=== PATIENT | male | born 1960 | race Two or more races ===

== ENCOUNTER 2018-12-29 20:49 | Inpatient (IN) | payer MEDICARE, MEDICAID ==
--- NOTE | 2018-12-29 21:04 | ED Physician Chart ---
ED Chief Complaint/HPI - Patient Information Date Seen:: 12/29/18 Time Seen:: 20:50 Chief Complaint:: aggressive behavior History of Present Illness:: Patient has been exhibiting increasing aggressiveness towards staff and other residents at his senior living facility. Has been verbally abusive and exhibiting sexually inappropriate behavior touching female staff members in the back. Reportedly has been picking fights with other residents Allergies:: Allergies Allergy/AdvReac Type Severity Reaction Status Date / Time No Known Allergies Allergy Verified 12/29/18 20:52 ED Review of Systems - Review of Systems General/Constitutional: No fever, No chills, No weight loss, No weakness, No diaphoresis, No edema, No loss of appetite Skin: No skin lesions, No rash, No bruising Head: No headache, No light-headedness Eyes: No loss of vision, No pain, No diplopia ENT: No earache, No nasal drainage, No sore throat, No tinnitus Neck: No neck pain, No swelling, No thyromegaly, No stiffness, No mass noted Cardio Vascular: No chest pain, No palpitations, No PND, No orthopnea, No edema Pulmonary: No SOB, No cough, No sputum, No wheezing GI: No nausea, No vomiting, No diarrhea, No pain, No melena, No hematochezia, No constipation, No hematemesis G/U: No dysuria, No frequency, No hematuria Musculoskeletal: No bone or joint pain, No back pain, No muscle pain Endocrine: No polyuria, No polydipsia Psychiatric: No prior psych history, No depression, No anxiety, No suicidal ideation Hematopoietic: No bruising, No lymphadenopathy Allergic/Immuno: No urticaria, No angioedema Neurological: No syncope, No focal symptoms, No weakness, No paresthesia, No headache, No seizure, No dizziness, No confusion, No vertigo ED Past Medical History - Past Medical History Past Medical History: CAD, Asthma/COPD, Thyroid disorder, Dementia, Other ( cerebrovascular disease; anemia; occult thyroidism; paranoid schizophrenia) Family History: Other (not available) Social History: Care Facility Surgical History: other (not available) Psychiatricy History: Schizophrenia, Dementia Medication: Reviewed Family Medical History - Family Member Mother History Unknown: Yes Ethnicity: Non- Hx Family Cancer: No Hx Family Coronary Artery Disease: No Hx Family Congestive Heart Failure: No Hx Family Hypertension: No Hx Family Stroke: No Hx Family Diabetes: No Hx Family Seizures: No Hx Family Dementia: No Hx Family AIDS: No Hx Family HIV: No Hx Family COPD: No Hx Family Hepatitis: No Hx Family Psychiatric Problems: No Hx Family Tuberculosis: No ED Physical Exam - Physical Examination General/Constitutional: Awake, Well-developed, well-nourished, Alert Other Gen/Cons comments:: Patient is confused; he says the years 3020 Head: Atraumatic Other Eyes comments:: implant right eye Skin: Nl inspection, No rash ENMT: External ears, nose nl, Oropharynx nl, Tonsils nl Other ENMT comments:: 4/ Nasal septal deviation to the left Neck: No nuchal rigidity Respiratory: Nl effort/Exclusion, Clear to Auscultation Cardio Vascular: RRR, No murmur, gallop, rubs GI: No tenderness/rebounding/guarding, No organomegaly, No hernia, Normal BS's, Nondistended, No mass/bruits : No CVA tenderness Extremities: Normal digits & nails Neuro/Psych: No focal deficits Misc: No paraspinal tenderness ED Labs/Radiology/EKG Results - Lab Results Results: Laboratory Results WBC 11.1 Th/cmm (4.8-10.8) H 12/29/18 21:19 RBC 4.93 Mil/cmm (4.30-5.70) 12/29/18 21:19 Hgb 15.3 gm/dL (12-16) 12/29/18 21:19 Hct 45.2 % (41.0-60) 12/29/18 21:19 MCV 91.6 fl (80-99) 12/29/18 21:19 MCH 31.0 pg (26.0-30.0) H 12/29/18 21:19 MCHC Differential 33.8 pg (28.0-36.0) 12/29/18 21:19 RDW 13.5 % (11.5-20.0) 12/29/18 21:19 Plt Count 171 Th/cmm (150-400) 12/29/18 21:19 MPV 9.4 fl 12/29/18 21:19 Neutrophils % 49.4 % (40.0-80.0) 12/29/18 21:19 Lymphocytes % 30.9 % (20.0-50.0) 12/29/18 21:19 Monocytes % 7.8 % (2.0-10.0) 12/29/18 21:19 Eosinophils % 11.0 % (0.0-5.0) H 12/29/18 21:19 Basophils % 0.9 % (0.0-2.0) 12/29/18 21:19 Sodium 140 mEq/L (136-145) 12/29/18 21:19 Potassium 4.2 mEq/L (3.5-5.1) 12/29/18 21:19 Chloride 104 mEq/L (98-107) 12/29/18 21:19 Carbon Dioxide 25.5 mEq/L (21.0-31.0) 12/29/18 21:19 Anion Gap 14.7 (7.0-16.0) 12/29/18 21:19 BUN 22 mg/dL (7-25) 12/29/18 21:19 Creatinine 0.7 mg/dL (0.7-1.3) 12/29/18 21:19 Est GFR ( Amer) > 60.0 ml/min (>90) 12/29/18 21:19 Est GFR (Non-Af Amer) > 60.0 ml/min 12/29/18 21:19 BUN/Creatinine Ratio 31.4 12/29/18 21:19 Glucose 89 mg/dL (70-105) 12/29/18 21:19 Calcium 9.5 mg/dL (8.6-10.3) 12/29/18 21:19 Total Bilirubin 0.3 mg/dL (0.3-1.0) 12/29/18 21:19 AST 31 U/L (13-39) 12/29/18 21:19 ALT 45 U/L (7-52) 12/29/18 21:19 Alkaline Phosphatase 55 U/L (34-104) 12/29/18 21:19 Total Protein 7.3 gm/dL (6.0-8.3) 12/29/18 21:19 Albumin 4.2 gm/dL (4.2-5.5) 12/29/18 21:19 Globulin 3.1 gm/dL 12/29/18 21:19 Albumin/Globulin Ratio 1.4 (1.0-1.8) 12/29/18 21:19 Triglycerides 217 mg/dL (<150) H 12/29/18 21:19 Cholesterol 194 mg/dL (<200) 12/29/18 21:19 LDL Cholesterol Direct 138 mg/dL (75-193) 12/29/18 21:19 HDL Cholesterol 44 mg/dL (23-92) 12/29/18 21:19 - Radiology Results Results: chest x-ray negative - EKG Interpretations Rate & Rhythm: normal sinus rhythm with a rate of 54 [place]: normal Comments:: low voltage ED Assessment - Assessment General Assessment: Patient had some coughing in the emergency department. Chest x-ray was normal. ED Septic Shock - . Is Septic Shock (SBP<90, OR Lactate>4 mmol\L) present?: No ED Reassessment (Disposition) - Reassessment Reassessment Condition:: Unchanged - Diagnosis Diagnosis:: Dementia with aggressive behavior; viral bronchitis - Patient Disposition Admitted to:: [facility] Admitting Medical Physician:: Cheo Peña Admitting Psych Physician:: Bria Kennedy
[2018-12-29 21:23] LABS: % BASOPHILS 0.9 % (0.0-2.0); % LYMPHOCYTES 30.9 % (20.0-50.0); % MONOCYTES 7.8 % (2.0-10.0); % NEUTROPHILS 49.4 % (40.0-80.0); BASOPHILE ABSOLUTE 0.1 Th/cumm (0-0.2); EOSINOPHILE ABSOLUTE 1.2 Th/cmm (0.1-0.4); HEMATOCRIT 45.2 % (41.0-60); HEMOGLOBIN 15.3 gm/dL (12-16); LYMPHOCYTE ABSOLUTE 3.4 Th/cmm (1.5-3.0); MEAN CELL VOLUME 91.6 fl (80-99); MEAN CORPUSCULAR HGB CONC 33.8 pg (28.0-36.0); MEAN PLATELET VOLUME 9.4 fl; MONOCYTE ABSOLUTE 0.9 Th/cmm (0.3-1.0); NEUTROPHILE ABSOLUTE 5.5 Th/cmm (1.8-8.0); PLATELET COUNT 171 Th/cmm (150-400); RED BLOOD COUNT 4.93 Mil/cmm (4.30-5.70); RED CELL DISTRIBUTION WIDTH 13.5 % (11.5-20.0); WHITE BLOOD COUNT 11.1 Th/cmm (4.8-10.8)
[2018-12-29 21:43] LABS: ALB/GLOB RATIO 1.4 (1.0-1.8); ALBUMIN 4.2 gm/dL (4.2-5.5); ALKALINE PHOSPHATASE 55 U/L (34-104); ANION GAP 14.7 (7.0-16.0); BILIRUBIN,TOTAL 0.3 mg/dL (0.3-1.0); BUN - UREA NITROGEN 22 mg/dL (7-25); CALCIUM SERUM 9.5 mg/dL (8.6-10.3); CARBON DIOXIDE 25.5 mEq/L (21.0-31.0); CHLORIDE 104 mEq/L (98-107); CHOLESTEROL 194 mg/dL (<200); CREATININE - SERUM 0.7 mg/dL (0.7-1.3); GFR AFRICAN-AMERICAN > 60.0 ml/min (>90); GFR NON AFRICAN-AMERICAN > 60.0 ml/min; GLUCOSE 89 mg/dL (70-105); HDL -HIGH DENSITY LIPOPROTEIN 44 mg/dL (23-92); POTASSIUM SERUM 4.2 mEq/L (3.5-5.1); SGOT 31 U/L (13-39); SGPT/ALT 45 U/L (7-52); SODIUM SERUM 140 mEq/L (136-145); TOTAL PROTEIN,SERUM 7.3 gm/dL (6.0-8.3); TRIGLYCERIDES 217 mg/dL (<150)
[2018-12-30 00:15] VITALS: BP 113/76
[2018-12-30] MEDS ORDERED: Magnesium Hydroxide (MOM) 30 mL UDC PO PRN (01:38)
[2018-12-30] MEDS: Levothyroxine 0.025 Mg Tab PO SCH (06:33)
[2018-12-30 08:09] LABS: CHOLESTEROL 175 mg/dL (<200); HDL -HIGH DENSITY LIPOPROTEIN 39 mg/dL (23-92); TRIGLYCERIDES 141 mg/dL (<150)
--- NOTE | 2018-12-30 08:56 | Diagnostic Imaging Report ---
Portable chest x-ray History: Cough Allowing for portable technique the heart size is normal. No focal pulmonary parenchymal processes. No hilar or mediastinal abnormalities. Impression: No acute abnormalities.
[2018-12-30] MEDS: Aspirin 81mg Chewable Tab PO SCH (09:49)
[2018-12-30] MEDS: DIVALPROEX PO SCH ×2 (09:56→16:49)
--- NOTE | 2018-12-30 14:08 | History & Physical ---
ADMIT DATE: 12/29/2018 CHIEF COMPLAINT: Medical evaluation and clearance. HISTORY OF PRESENT ILLNESS: This is a 58-year-old male with history of psych disorder, dementia, hypothyroidism, admitted from nursing facility secondary to agitated behavior, admitted under the service of Dr. Kennedy. The patient denies chest pain, shortness of breath, coughing and fever. PAST MEDICAL HISTORY: As mentioned in history of present illness. PAST SURGICAL HISTORY: Status post left shoulder surgery. ALLERGIES: No known drug allergies. MEDICATIONS: Depakote, Seroquel, Tylenol, Colace, ____, Cosopt eyedrops, Synthroid and Zyprexa ____ FAMILY HISTORY: Noncontributory. SOCIAL HISTORY: The patient is an avid smoker and drinker. 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 REVIEW OF SYSTEMS: GENERAL: Complains of not feeling well. HEENT: No blurred vision or pain. LUNGS: No diagnosis of COPD or asthma. HEART: The patient denies hypertension or coronary artery disease. ABDOMEN: No nausea, vomiting, or pain. GENITOURINARY: The patient denies increased frequency or dysuria. NEUROLOGIC: No headache, seizure. The patient has unstable gait. ENDOCRINE: The patient with a thyroid problem. PHYSICAL EXAMINATION: VITAL SIGNS: Blood pressure 128/75, respiratory rate 20, pulse 69, temperature 98.6. GENERAL: Elderly male, appears stated age. NECK: Supple. No mass. LUNGS: Equal breath sounds, few rhonchi. HEART: Regular rate and rhythm without systolic ejection murmur. ABDOMEN: Soft, globular. EXTREMITIES: Positive excoriation and edema. NEUROLOGIC: Limited. LABORATORY DATA: WBC 11, hemoglobin 15, platelets 121. Sodium 140, potassium 4.2, BUN 22, creatinine 0.7, triglyceride ____. ASSESSMENT AND PLAN: Leukocytosis of unclear etiology, unclear significance, dementia, psych disorder, hypothyroidism, generalized weakness, osteoarthritis. We will put the patient on non-steroidal anti-inflammatories drugs. Continue Synthroid. We will place the patient on fall precaution. Check the patient's electrolytes and A1c. Continue with current care. We will follow the patient closely. JOB# [id number]
--- NOTE | 2018-12-30 21:39 | Psychiatric Evaluation ---
DATE OF SERVICE: 12/29/2018 IDENTIFYING INFORMATION: The patient is a 58-year-old male. HISTORY OF PRESENT ILLNESS: The patient was admitted because he expressed a desire to , now he has no plan for that, but it may come back. When I talked to him, he was a poor historian. He was unable to tell me his age, he believes he is 39 years of age. He was for 10 years. He believes he is homeless, living on the streets. He denies any auditory or visual hallucination; however, he was unable to tell me the date, where he is, why he is here. PAST PSYCHIATRIC HISTORY: The patient is demented, confused, unable to give information, tell me his age, and why he is here. MEDICAL HISTORY: Deferred to the medical doctor. ALLERGIES: FLOMAX AND IODINE. MEDICATIONS: He is on Depakote, famotidine, heparin,, midodrine. FAMILY AND SOCIAL HISTORY: The patient is 10 years, has no children. He believes he was living in the street, though he came from a nursing facility, 8th grade education. 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 MENTAL STATUS EXAMINATION: The patient is appropriately dressed, not very well groomed. He was alert, unable to tell me his age, where he is, and why he is here. His retirement and short term memory is poor. He reported that he said the wrong thing, he said he wanted to , he does not mean it. He denies any intent to harm himself or anybody. His insight and judgment is impaired. IMPRESSION: Bipolar disorder, nonspecific and dementia. INITIAL TREATMENT PLAN: The patient will be continued with his medication. We will do group therapy, milieu therapy, and individual therapy. I will be adding Lexapro to his medications. ESTIMATED LENGTH OF STAY: 3-7 days. DISCHARGE CRITERIA: Decreasing agitation and depression. After discharge, outpatient treatment. JOB# [id number] GABRIEL
[2018-12-31] MEDS: Levothyroxine 0.025 Mg Tab PO SCH (07:02)
[2018-12-31] MEDS: DIVALPROEX PO SCH ×2 (09:35→16:38)
[2018-12-31] MEDS: Aspirin 81mg Chewable Tab PO SCH (09:36)
[2018-12-31] MEDS: Vitamin D3 2,000 IU SGL PO SCH (09:37)
--- NOTE | 2018-12-31 12:19 | Internal Medicine Prog Note ---
Internal Medicine Subjective - Subjective Patient seen and examined:: with staff, chart reviewed Patient is:: awake, verbal, interactive, in bed Patient Complaints of:: congestion Per staff patient has:: no adverse event, no episodes of fall, poor appetite, tolerating meds Internal Medicine Objective - Results Result Diagrams: 12/29/18 21:19 12/29/18 21:19 Recent Labs: Laboratory Last Values WBC 11.1 Th/cmm (4.8-10.8) H 12/29/18 21:19 RBC 4.93 Mil/cmm (4.30-5.70) 12/29/18 21:19 Hgb 15.3 gm/dL (12-16) 12/29/18 21:19 Hct 45.2 % (41.0-60) 12/29/18 21: MCV 91.6 fl (80-99) 12/29/18 21:19 MCH 31.0 pg (26.0-30.0) H 12/29/18 21: MCHC Differential 33.8 pg (28.0-36.0) 12/29/18 21:19 RDW 13.5 % (11.5-20.0) 12/29/18 21:19 Plt Count 171 Th/cmm (150-400) 12/29/18 21:19 MPV 9.4 fl 12/29/18 21:19 Neutrophils % 49.4 % (40.0-80.0) 12/29/18 21:19 Lymphocytes % 30.9 % (20.0-50.0) 12/29/18 21: Monocytes % 7.8 % (2.0-10.0) 12/29/18 21:19 Eosinophils % 11.0 % (0.0-5.0) H 12/29/18 21:19 Basophils % 0.9 % (0.0-2.0) 12/29/18 21:19 Sodium 140 mEq/L (136-145) 12/29/18 21:19 Potassium 4.2 mEq/L (3.5-5.1) 12/29/18 21:19 Chloride 104 mEq/L (98-107) 12/29/18 21:19 Carbon Dioxide 25.5 mEq/L (21.0-31.0) 12/29/18 21:19 Anion Gap 14.7 (7.0-16.0) 12/29/18 21:19 BUN 22 mg/dL (7-25) 12/29/18 21:19 Creatinine 0.7 mg/dL (0.7-1.3) 12/29/18 21:19 Est GFR ( Amer) > 60.0 ml/min (>90) 12/29/18 21:19 Est GFR (Non-Af Amer) > 60.0 ml/min 12/29/18 21:19 BUN/Creatinine Ratio 31.4 12/29/18 21:19 Glucose 89 mg/dL (70-105) 12/29/18 21:19 Calcium 9.5 mg/dL (8.6-10.3) 12/29/18 21: Total Bilirubin 0.3 mg/dL (0.3-1.0) 12/29/18 21:19 AST 31 U/L (13-39) 12/29/18 21: ALT 45 U/L (7-52) 12/29/18 21: Alkaline Phosphatase 55 U/L (34-104) 12/29/18 21:19 Total Protein 7.3 gm/dL (6.0-8.3) 12/29/18 21:19 Albumin 4.2 gm/dL (4.2-5.5) 12/29/18 21: Globulin 3.1 gm/dL 12/29/18 21: Albumin/Globulin Ratio 1.4 (1.0-1.8) 12/29/18 21:19 Triglycerides 141 mg/dL (<150) 12/30/18 07:29 Cholesterol 175 mg/dL (<200) 12/30/18 07:29 LDL Cholesterol Direct 127 mg/dL (75-193) 12/30/18 07:29 HDL Cholesterol 39 mg/dL (23-92) 12/30/18 07:29 TSH 0.81 uIU/ml (0.34-5.60) 12/29/18 22:15 RPR NONREACTIVE (NONREACTIVE) 12/29/18 07:29 - Physical Exam Vitals and I&O: Vital Signs Temp 97.8 F 12/31/18 05:37 Pulse 48 12/31/18 05:37 Resp 20 12/31/18 05:37 BP 96/59 12/31/18 05:37 Pulse Ox 98 12/31/18 05:37 Intake & Output 12/30/18 12/31/18 12/31/18 18:59 06:59 18:59 Intake Total 900 120 Balance 900 120 Intake: Oral 900 120 Other: # Voids 4 2 # Bowel Movements 1 0 Stool Characteristics Formed Active Medications: Current Medications Acetaminophen (Tylenol) 650 mg PO Q6HR PRN PRN Reason: Pain or Fever >101 Stop: 02/28/19 01:37 Aspirin (Aspirin Chewable) 81 mg PO DAILY JOSE Stop: 02/28/19 08:59 Last Admin: 12/31/18 09:36 Dose: 81 mg Bisacodyl (Dulcolax 10 Mg Supp) 10 mg RC DAILY PRN PRN Reason: Constipation Stop: 02/28/19 01:37 Divalproex Sodium 125 mg/ (Divalproex Sodium 250 mg) 375 mg PO BID JOSE Stop: 02/28/19 08:59 Last Admin: 12/31/18 09:35 Dose: 375 mg Docusate Sodium (Colace) 100 mg PO DAILY JOSE Stop: 02/28/19 08:59 Last Admin: 12/31/18 09:36 Dose: 100 mg Donepezil HCl (Aricept) 10 mg PO HS [facility] Stop: 02/28/19 20:59 Last Admin: 12/30/18 21:02 Dose: 10 mg Dorzolamide/Timolol (Cosopt Ophth Soln) 1 drop EACH EYE BID JOSE Stop: 02/28/19 08:59 Last Admin: 12/31/18 09:50 Dose: 1 drop Levothyroxine Sodium (Synthroid) 0.025 mg PO QDAC JOSE Stop: 02/28/19 07:29 Last Admin: 12/31/18 07:02 Dose: 0.025 mg Lorazepam (Ativan) 0.5 mg PO Q6HR PRN; Protocol PRN Reason: Anxiety Stop: 02/28/19 05:23 Magnesium Hydroxide (Milk Of Magnesia) 30 ml PO Q72H PRN PRN Reason: Constipation Stop: 02/28/19 01:37 Olanzapine (Zyprexa) 7.5 mg PO HS [facility]; Protocol Stop: 02/28/19 20:59 Last Admin: 12/30/18 21:01 Dose: 7.5 mg Thiamine HCl (Vitamin B1) 100 mg PO DAILY [facility] Stop: 02/28/19 08:59 Last Admin: 12/31/18 09:37 Dose: 100 mg Vitamin D (Vitamin D3) 2,000 iu PO DAILY JOSE Stop: 03/01/19 08:59 Last Admin: 12/31/18 09:37 Dose: 2,000 iu Zolpidem Tartrate (Ambien) 5 mg PO HS PRN PRN Reason: Insomnia Stop: 02/28/19 05:25 General: demented HEENT: NC/AT, PERRLA Neck: Supple, No JVD Lungs: CTAB Cardiovascular: RRR, Normal S1, Normal S2 Abdomen: soft, non-tender, globular, positive bowel sound Extremities: excoriation Neurological: no change, disorganized - Procedures Procedures: Procedures Procedure Code Date GROUP PSYCHOTHERAPY 89262 07/02/15 GROUP PSYCHOTHERAPY GZHZZZZ 07/02/15 OTHER GROUP THERAPY 94.44 04/09/15 Internal Medicine Assmt/Plan - Assessment Assessment: leukocytosis dementia hypothroidism generalized weakness oa - Plan Plan: fall precaution nsaids cont on synthroid cpm dw rn
--- NOTE | 2018-12-31 21:14 | Progress Notes ---
DATE: 12/31/2018 Case was discussed with staff of the patient, reviewed records. The patient continues to be confused, unpredictable, impulsive, needing redirection. Continues to be unable to make safe plan for self-care. Continues to have poor insight. Easily agitated, internally preoccupied. No side effects with the medication, no sedation, no nausea, no extrapyramidal symptoms. He is also demented, confused. We will continue outpatient group therapy, milieu therapy, and adjust medications as needed. [facility]# [id number]
[2019-01-01] MEDS: Levothyroxine 0.025 Mg Tab PO SCH (06:35)
[2019-01-01] MEDS: Vitamin D3 2,000 IU SGL PO SCH (09:03)
[2019-01-01] MEDS: Aspirin 81mg Chewable Tab PO SCH (09:03)
[2019-01-01] MEDS: DIVALPROEX PO SCH ×2 (09:03→17:41)
--- NOTE | 2019-01-01 11:44 | Internal Medicine Prog Note ---
Internal Medicine Subjective - Subjective Patient seen and examined:: with staff, chart reviewed Patient is:: awake, verbal, interactive, in bed Patient Complaints of:: congestion Per staff patient has:: no adverse event, no episodes of fall, poor appetite, tolerating meds Internal Medicine Objective - Results Result Diagrams: 12/29/18 21:19 12/29/18 21:19 Recent Labs: Laboratory Last Values WBC 11.1 Th/cmm (4.8-10.8) H 12/29/18 21:19 RBC 4.93 Mil/cmm (4.30-5.70) 12/29/18 21:19 Hgb 15.3 gm/dL (12-16) 12/29/18 21:19 Hct 45.2 % (41.0-60) 12/29/18 21: MCV 91.6 fl (80-99) 12/29/18 21:19 MCH 31.0 pg (26.0-30.0) H 12/29/18 21: MCHC Differential 33.8 pg (28.0-36.0) 12/29/18 21:19 RDW 13.5 % (11.5-20.0) 12/29/18 21:19 Plt Count 171 Th/cmm (150-400) 12/29/18 21:19 MPV 9.4 fl 12/29/18 21:19 Neutrophils % 49.4 % (40.0-80.0) 12/29/18 21:19 Lymphocytes % 30.9 % (20.0-50.0) 12/29/18 21: Monocytes % 7.8 % (2.0-10.0) 12/29/18 21:19 Eosinophils % 11.0 % (0.0-5.0) H 12/29/18 21:19 Basophils % 0.9 % (0.0-2.0) 12/29/18 21:19 Sodium 140 mEq/L (136-145) 12/29/18 21:19 Potassium 4.2 mEq/L (3.5-5.1) 12/29/18 21:19 Chloride 104 mEq/L (98-107) 12/29/18 21:19 Carbon Dioxide 25.5 mEq/L (21.0-31.0) 12/29/18 21:19 Anion Gap 14.7 (7.0-16.0) 12/29/18 21:19 BUN 22 mg/dL (7-25) 12/29/18 21:19 Creatinine 0.7 mg/dL (0.7-1.3) 12/29/18 21:19 Est GFR ( Amer) > 60.0 ml/min (>90) 12/29/18 21: Est GFR (Non-Af Amer) > 60.0 ml/min 12/29/18 21: BUN/Creatinine Ratio 31.4 12/29/18 21:19 Glucose 89 mg/dL (70-105) 12/29/18 21:19 Calcium 9.5 mg/dL (8.6-10.3) 12/29/18 21: Total Bilirubin 0.3 mg/dL (0.3-1.0) 12/29/18 21:19 AST 31 U/L (13-39) 12/29/18 21: ALT 45 U/L (7-52) 12/29/18 21: Alkaline Phosphatase 55 U/L (34-104) 12/29/18 21:19 Total Protein 7.3 gm/dL (6.0-8.3) 12/29/18 21: Albumin 4.2 gm/dL (4.2-5.5) 12/29/18 21: Globulin 3.1 gm/dL 12/29/18 21: Albumin/Globulin Ratio 1.4 (1.0-1.8) 12/29/18 21:19 Triglycerides 141 mg/dL (<150) 12/30/18 07:29 Cholesterol 175 mg/dL (<200) 12/30/18 07:29 LDL Cholesterol Direct 127 mg/dL (75-193) 12/30/18 07:29 HDL Cholesterol 39 mg/dL (23-92) 12/30/18 07:29 TSH 0.81 uIU/ml (0.34-5.60) 12/29/18 22:15 RPR NONREACTIVE (NONREACTIVE) 12/29/18 07:29 - Physical Exam Vitals and I&O: Vital Signs Temp 97.6 F 01/01/19 06:24 Pulse 62 01/01/19 06:24 Resp 18 01/01/19 06:24 BP 96/60 01/01/19 06:24 Pulse Ox 96 01/01/19 06:24 Intake & Output 12/31/18 01/01/19 01/01/19 18:59 06:59 18:59 Intake Total 1400 110 Balance 1400 110 Intake: Oral 1400 110 Other: # Voids 4 2 # Bowel Movements 0 0 Stool Characteristics Formed Active Medications: Current Medications Acetaminophen (Tylenol) 650 mg PO Q6HR PRN PRN Reason: Pain or Fever >101 Stop: 02/28/19 01:37 Aspirin (Aspirin Chewable) 81 mg PO DAILY JOSE Stop: 02/28/19 08:59 Last Admin: 01/01/19 09:03 Dose: 81 mg Bisacodyl (Dulcolax 10 Mg Supp) 10 mg RC DAILY PRN PRN Reason: Constipation Stop: 02/28/19 01:37 Divalproex Sodium 125 mg/ (Divalproex Sodium 250 mg) 375 mg PO BID JOSE Stop: 02/28/19 08:59 Last Admin: 01/01/19 09:03 Dose: 375 mg Docusate Sodium (Colace) 100 mg PO DAILY JOSE Stop: 02/28/19 08:59 Last Admin: 01/01/19 09:02 Dose: 100 mg Donepezil HCl (Aricept) 10 mg PO HS [facility] Stop: 02/28/19 20:59 Last Admin: 12/31/18 20:36 Dose: 10 mg Dorzolamide/Timolol (Cosopt Ophth Soln) 1 drop EACH EYE BID JOSE Stop: 02/28/19 08:59 Last Admin: 01/01/19 09:02 Dose: 1 drop Levothyroxine Sodium (Synthroid) 0.025 mg PO QDAC JOSE Stop: 02/28/19 07:29 Last Admin: 01/01/19 06:35 Dose: 0.025 mg Lorazepam (Ativan) 0.5 mg PO Q6HR PRN; Protocol PRN Reason: Anxiety Stop: 02/28/19 05:23 Magnesium Hydroxide (Milk Of Magnesia) 30 ml PO Q72H PRN PRN Reason: Constipation Stop: 02/28/19 01:37 Olanzapine (Zyprexa) 7.5 mg PO HS [facility]; Protocol Stop: 02/28/19 20:59 Last Admin: 12/31/18 20:36 Dose: 7.5 mg Thiamine HCl (Vitamin B1) 100 mg PO DAILY [facility] Stop: 02/28/19 08:59 Last Admin: 01/01/19 09:02 Dose: 100 mg Vitamin D (Vitamin D3) 2,000 iu PO DAILY JOSE Stop: 03/01/19 08:59 Last Admin: 01/01/19 09:03 Dose: 2,000 iu Zolpidem Tartrate (Ambien) 5 mg PO HS PRN PRN Reason: Insomnia Stop: 02/28/19 05:25 General: demented HEENT: NC/AT, PERRLA Neck: Supple, No JVD Lungs: CTAB Cardiovascular: RRR, Normal S1, Normal S2 Abdomen: soft, non-tender, globular, positive bowel sound Extremities: excoriation Neurological: no change, disorganized - Procedures Procedures: Procedures Procedure Code Date GROUP PSYCHOTHERAPY 56812 07/02/15 GROUP PSYCHOTHERAPY GZHZZZZ 07/02/15 OTHER GROUP THERAPY 94.44 04/09/15 Internal Medicine Assmt/Plan - Assessment Assessment: leukocytosis dementia hypothroidism generalized weakness oa - Plan Plan: fall precaution nsaids cont on synthroid cpm dw rn
--- NOTE | 2019-01-01 21:59 | Progress Notes ---
DATE: 01/01/2019 SUBJECTIVE: Case was discussed with staff of the patient, reviewed records. The patient continues to be confused, unpredictable, impulsive, irritable, can take care of his ADLs, need help. He continues to have episodes of agitation, irritability. He is compliant with the medication with no side effects, no sedation, no nausea, and no extrapyramidal symptoms. Tolerated increase in Zyprexa yesterday to 7.5 mg at bedtime. We will continue to work with the patient in group therapy, milieu therapy, and adjust the medications as needed. JOB# [id number]
[2019-01-02] MEDS: Levothyroxine 0.025 Mg Tab PO SCH (06:50)
[2019-01-02] MEDS: Vitamin D3 2,000 IU SGL PO SCH (08:48)
[2019-01-02] MEDS: DIVALPROEX PO SCH ×2 (08:48→16:11)
[2019-01-02] MEDS: Aspirin 81mg Chewable Tab PO SCH (08:49)
--- NOTE | 2019-01-02 11:16 | Internal Medicine Prog Note ---
Internal Medicine Subjective - Subjective Patient seen and examined:: with staff, chart reviewed Patient is:: awake, verbal, interactive, in bed Patient Complaints of:: congestion Per staff patient has:: no adverse event, no episodes of fall, poor appetite, tolerating meds Internal Medicine Objective - Results Result Diagrams: 12/29/18 21:19 12/29/18 21:19 Recent Labs: Laboratory Last Values WBC 11.1 Th/cmm (4.8-10.8) H 12/29/18 21:19 RBC 4.93 Mil/cmm (4.30-5.70) 12/29/18 21:19 Hgb 15.3 gm/dL (12-16) 12/29/18 21:19 Hct 45.2 % (41.0-60) 12/29/18 21: MCV 91.6 fl (80-99) 12/29/18 21:19 MCH 31.0 pg (26.0-30.0) H 12/29/18 21: MCHC Differential 33.8 pg (28.0-36.0) 12/29/18 21:19 RDW 13.5 % (11.5-20.0) 12/29/18 21:19 Plt Count 171 Th/cmm (150-400) 12/29/18 21:19 MPV 9.4 fl 12/29/18 21:19 Neutrophils % 49.4 % (40.0-80.0) 12/29/18 21:19 Lymphocytes % 30.9 % (20.0-50.0) 12/29/18 21: Monocytes % 7.8 % (2.0-10.0) 12/29/18 21:19 Eosinophils % 11.0 % (0.0-5.0) H 12/29/18 21:19 Basophils % 0.9 % (0.0-2.0) 12/29/18 21:19 Sodium 140 mEq/L (136-145) 12/29/18 21:19 Potassium 4.2 mEq/L (3.5-5.1) 12/29/18 21:19 Chloride 104 mEq/L (98-107) 12/29/18 21:19 Carbon Dioxide 25.5 mEq/L (21.0-31.0) 12/29/18 21:19 Anion Gap 14.7 (7.0-16.0) 12/29/18 21:19 BUN 22 mg/dL (7-25) 12/29/18 21:19 Creatinine 0.7 mg/dL (0.7-1.3) 12/29/18 21:19 Est GFR ( Amer) > 60.0 ml/min (>90) 12/29/18 21: Est GFR (Non-Af Amer) > 60.0 ml/min 12/29/18 21:19 BUN/Creatinine Ratio 31.4 12/29/18 21:19 Glucose 89 mg/dL (70-105) 12/29/18 21:19 Calcium 9.5 mg/dL (8.6-10.3) 12/29/18 21: Total Bilirubin 0.3 mg/dL (0.3-1.0) 12/29/18 21:19 AST 31 U/L (13-39) 12/29/18 21: ALT 45 U/L (7-52) 12/29/18 21: Alkaline Phosphatase 55 U/L (34-104) 12/29/18 21:19 Total Protein 7.3 gm/dL (6.0-8.3) 12/29/18 21:19 Albumin 4.2 gm/dL (4.2-5.5) 12/29/18 21: Globulin 3.1 gm/dL 12/29/18 21: Albumin/Globulin Ratio 1.4 (1.0-1.8) 12/29/18 21:19 Triglycerides 141 mg/dL (<150) 12/30/18 07:29 Cholesterol 175 mg/dL (<200) 12/30/18 07:29 LDL Cholesterol Direct 127 mg/dL (75-193) 12/30/18 07:29 HDL Cholesterol 39 mg/dL (23-92) 12/30/18 07:29 TSH 0.81 uIU/ml (0.34-5.60) 12/29/18 22:15 RPR NONREACTIVE (NONREACTIVE) 12/29/18 07:29 - Physical Exam Vitals and I&O: Vital Signs Temp 97.6 F 01/02/19 06:11 Pulse 59 01/02/19 06:11 Resp 18 01/02/19 06:11 BP 101/69 01/02/19 06:11 Pulse Ox 96 01/02/19 06:11 Intake & Output 01/01/19 01/02/19 01/02/19 18:59 06:59 18:59 Intake Total 800 120 Balance 800 120 Intake: Oral 800 120 Other: # Voids 3 3 # Bowel Movements 0 1 Stool Characteristics Formed Active Medications: Current Medications Acetaminophen (Tylenol) 650 mg PO Q6HR PRN PRN Reason: Pain or Fever >101 Stop: 02/28/19 01:37 Aspirin (Aspirin Chewable) 81 mg PO DAILY JOSE Stop: 02/28/19 08:59 Last Admin: 01/02/19 08:49 Dose: 81 mg Bisacodyl (Dulcolax 10 Mg Supp) 10 mg RC DAILY PRN PRN Reason: Constipation Stop: 02/28/19 01:37 Divalproex Sodium 125 mg/ (Divalproex Sodium 250 mg) 375 mg PO BID JOSE Stop: 02/28/19 08:59 Last Admin: 01/02/19 08:48 Dose: 375 mg Docusate Sodium (Colace) 100 mg PO DAILY JOSE Stop: 02/28/19 08:59 Last Admin: 01/02/19 08:49 Dose: 100 mg Donepezil HCl (Aricept) 10 mg PO HS [facility] Stop: 02/28/19 20:59 Last Admin: 01/01/19 20:27 Dose: 10 mg Dorzolamide/Timolol (Cosopt Ophth Soln) 1 drop EACH EYE BID JOSE Stop: 02/28/19 08:59 Last Admin: 01/02/19 08:48 Dose: 1 drop Levothyroxine Sodium (Synthroid) 0.025 mg PO QDAC JOSE Stop: 02/28/19 07:29 Last Admin: 01/02/19 06:50 Dose: 0.025 mg Lorazepam (Ativan) 0.5 mg PO Q6HR PRN; Protocol PRN Reason: Anxiety Stop: 02/28/19 05:23 Magnesium Hydroxide (Milk Of Magnesia) 30 ml PO Q72H PRN PRN Reason: Constipation Stop: 02/28/19 01:37 Olanzapine (Zyprexa) 7.5 mg PO HS [facility]; Protocol Stop: 02/28/19 20:59 Last Admin: 01/01/19 20:27 Dose: 7.5 mg Thiamine HCl (Vitamin B1) 100 mg PO DAILY JOSE Stop: 02/28/19 08:59 Last Admin: 01/02/19 08:49 Dose: 100 mg Vitamin D (Vitamin D3) 2,000 iu PO DAILY JOSE Stop: 03/01/19 08:59 Last Admin: 01/02/19 08:48 Dose: 2,000 iu Zolpidem Tartrate (Ambien) 5 mg PO HS PRN PRN Reason: Insomnia Stop: 02/28/19 05:25 General: demented HEENT: NC/AT, PERRLA Neck: Supple, No JVD Lungs: CTAB Cardiovascular: RRR, Normal S1, Normal S2 Abdomen: soft, non-tender, globular, positive bowel sound Extremities: excoriation Neurological: no change, disorganized - Procedures Procedures: Procedures Procedure Code Date GROUP PSYCHOTHERAPY 35341 07/02/15 GROUP PSYCHOTHERAPY GZHZZZZ 07/02/15 OTHER GROUP THERAPY 94.44 04/09/15 Internal Medicine Assmt/Plan - Assessment Assessment: leukocytosis dementia hypothroidism generalized weakness oa - Plan Plan: fall precaution nsaids cont on synthroid cpm dw rn Nutritional Asmnt/Malnutr-PDOC - Dietary Evaluation Malnutrition Findings (Please click <Entered> for more info): Nutritional Asmnt/Malnutrition Start: 01/02/19 10: 17 Text: Status: Active Freq: Protocol: Document 01/02/19 10:17 LCKIMBERLYG (Rec: 01/02/19 10:24 [email or web address] [email or web address]) Nutritional Asmnt/Malnutrition Patient General Information Nutritional Screening Moderate Risk Diagnosis psychosis Pertinent Medical Hx/Surgical Hx CAD, asthma/COPD, thyroid disorder, dementia, cerebrovascular disease, anemia, occult thyroidism, paranoid schizophrenia Subjective Information Per EMR, PO itnake 75-100%. Current Diet Order/ Nutrition Support regular Pertinent Medications colace, synthroid, vit B1, vit D3 Pertinent Labs 5/2 TG 217 Nutritional Hx/Data Height 1.96 m Height (Calculated Centimeters) 195.6 Current Weight (lbs) 77.111 kg Weight (Calculated Kilograms) 77.1 Weight (Calculated Grams) 38260.7 [place] Body Weight 208 Body Mass Index (BMI) 20.1 Weight Status Approriate GI Symptoms GI Symptoms None Last BM 5/6 Difficult in: None Skin Integrity/Comment: dryness Current %PO Good (75-100%) Estimated Nutritional Goals BEE in Kcals: Using Current wt Calories/Kcals/Kg 25-30 Kcals Calculated 3791-8355 Protein: Using Current wt Protein g/k.8 Protein Calculated 62 Fluid: ml 1875-2340ml (1ml/kcal) Nutritional Problem No current Nutrition Prob Problem N/A Malnutrition Alert Is there a minimum of two criteria No selected? Query Text:Check all the applicable criteria. A minimum of two criteria are recommended for diagnosis of either severe or non-severe malnutrition. Malnutrition Related to Morbid Obesity Malnutrition related to morbid obesity No Intervention/Recommendation Comments 1. Continue with regular diet as ordered. 2. Monitor PO intake, wt, labs and skin integrity 3. F/U as Expected Outcomes/Goals Expected Outcomes/Goals 1. PO intake to meet at least 75% of nutritional needs. 2. Wt stability, skin to remain intact, labs to approach WNL.
--- NOTE | 2019-01-03 03:03 | Progress Notes ---
DATE: 01/02/2019 FOLLOWUP PROGRESS NOTE Case was discussed with staff of the patient, reviewed records. The patient continues to be internally preoccupied, stays to himself, demented, confused, unable to make safe plan for self-care, unpredictable, impulsive, needing redirection. He is sleeping well, eating well. No side effects of the medication, no sedation, no nausea and no extrapyramidal symptoms. We will continue to work with the patient in group therapy, milieu therapy and adjust the medication as needed. JOB# [id number]
[2019-01-03] MEDS: Levothyroxine 0.025 Mg Tab PO SCH (06:48)
[2019-01-03] MEDS: Vitamin D3 2,000 IU SGL PO SCH (08:13)
[2019-01-03] MEDS: Aspirin 81mg Chewable Tab PO SCH (08:13)
[2019-01-03] MEDS: DIVALPROEX PO SCH ×2 (08:14→16:40)
--- NOTE | 2019-01-03 11:54 | Internal Medicine Prog Note ---
Internal Medicine Subjective - Subjective Patient seen and examined:: with staff, chart reviewed Patient is:: awake, verbal, interactive, in bed Patient Complaints of:: congestion Per staff patient has:: no adverse event, no episodes of fall, poor appetite, tolerating meds Internal Medicine Objective - Results Result Diagrams: 12/29/18 21:19 12/29/18 21:19 Recent Labs: Laboratory Last Values WBC 11.1 Th/cmm (4.8-10.8) H 12/29/18 21:19 RBC 4.93 Mil/cmm (4.30-5.70) 12/29/18 21:19 Hgb 15.3 gm/dL (12-16) 12/29/18 21:19 Hct 45.2 % (41.0-60) 12/29/18 21: MCV 91.6 fl (80-99) 12/29/18 21:19 MCH 31.0 pg (26.0-30.0) H 12/29/18 21: MCHC Differential 33.8 pg (28.0-36.0) 12/29/18 21:19 RDW 13.5 % (11.5-20.0) 12/29/18 21:19 Plt Count 171 Th/cmm (150-400) 12/29/18 21:19 MPV 9.4 fl 12/29/18 21:19 Neutrophils % 49.4 % (40.0-80.0) 12/29/18 21:19 Lymphocytes % 30.9 % (20.0-50.0) 12/29/18 21: Monocytes % 7.8 % (2.0-10.0) 12/29/18 21:19 Eosinophils % 11.0 % (0.0-5.0) H 12/29/18 21:19 Basophils % 0.9 % (0.0-2.0) 12/29/18 21:19 Sodium 140 mEq/L (136-145) 12/29/18 21:19 Potassium 4.2 mEq/L (3.5-5.1) 12/29/18 21:19 Chloride 104 mEq/L (98-107) 12/29/18 21:19 Carbon Dioxide 25.5 mEq/L (21.0-31.0) 12/29/18 21:19 Anion Gap 14.7 (7.0-16.0) 12/29/18 21:19 BUN 22 mg/dL (7-25) 12/29/18 21:19 Creatinine 0.7 mg/dL (0.7-1.3) 12/29/18 21:19 Est GFR ( Amer) > 60.0 ml/min (>90) 12/29/18 21: Est GFR (Non-Af Amer) > 60.0 ml/min 12/29/18 21: BUN/Creatinine Ratio 31.4 12/29/18 21:19 Glucose 89 mg/dL (70-105) 12/29/18 21:19 Calcium 9.5 mg/dL (8.6-10.3) 12/29/18 21: Total Bilirubin 0.3 mg/dL (0.3-1.0) 12/29/18 21:19 AST 31 U/L (13-39) 12/29/18 21: ALT 45 U/L (7-52) 12/29/18 21: Alkaline Phosphatase 55 U/L (34-104) 12/29/18 21:19 Total Protein 7.3 gm/dL (6.0-8.3) 12/29/18 21:19 Albumin 4.2 gm/dL (4.2-5.5) 12/29/18 21: Globulin 3.1 gm/dL 12/29/18 21: Albumin/Globulin Ratio 1.4 (1.0-1.8) 12/29/18 21:19 Triglycerides 141 mg/dL (<150) 12/30/18 07:29 Cholesterol 175 mg/dL (<200) 12/30/18 07:29 LDL Cholesterol Direct 127 mg/dL (75-193) 12/30/18 07:29 HDL Cholesterol 39 mg/dL (23-92) 12/30/18 07:29 TSH 0.81 uIU/ml (0.34-5.60) 12/29/18 22:15 RPR NONREACTIVE (NONREACTIVE) 12/29/18 07:29 - Physical Exam Vitals and I&O: Vital Signs Temp 97.8 F 01/03/19 06:12 Pulse 51 01/03/19 06:12 Resp 20 01/03/19 06:12 BP 105/68 01/03/19 06:12 Pulse Ox 95 01/03/19 06:12 Intake & Output 01/02/19 01/03/19 01/03/19 18:59 06:59 18:59 Intake Total 900 240 Balance 900 240 Weight (lbs) 77.111 kg Intake: Oral 900 240 Other: # Voids 4 3 # Bowel Movements 1 0 Weight Source Bedscale Active Medications: Current Medications Acetaminophen (Tylenol) 650 mg PO Q6HR PRN PRN Reason: Pain or Fever >101 Stop: 02/28/19 01:37 Aspirin (Aspirin Chewable) 81 mg PO DAILY JOSE Stop: 02/28/19 08:59 Last Admin: 01/03/19 08:13 Dose: 81 mg Bisacodyl (Dulcolax 10 Mg Supp) 10 mg RC DAILY PRN PRN Reason: Constipation Stop: 02/28/19 01:37 Divalproex Sodium 125 mg/ (Divalproex Sodium 250 mg) 375 mg PO BID JOSE Stop: 02/28/19 08:59 Last Admin: 01/03/19 08:14 Dose: 375 mg Docusate Sodium (Colace) 100 mg PO DAILY JOSE Stop: 02/28/19 08:59 Last Admin: 01/03/19 08:14 Dose: 100 mg Donepezil HCl (Aricept) 10 mg PO HS [facility] Stop: 02/28/19 20:59 Last Admin: 01/02/19 20:55 Dose: 10 mg Dorzolamide/Timolol (Cosopt Ophth Soln) 1 drop EACH EYE BID JOSE Stop: 02/28/19 08:59 Last Admin: 01/03/19 08:14 Dose: 1 drop Levothyroxine Sodium (Synthroid) 0.025 mg PO QDAC JOSE Stop: 02/28/19 07:29 Last Admin: 01/03/19 06:48 Dose: 0.025 mg Lorazepam (Ativan) 0.5 mg PO Q6HR PRN; Protocol PRN Reason: Anxiety Stop: 02/28/19 05:23 Magnesium Hydroxide (Milk Of Magnesia) 30 ml PO Q72H PRN PRN Reason: Constipation Stop: 02/28/19 01:37 Olanzapine (Zyprexa) 7.5 mg PO HS [facility]; Protocol Stop: 02/28/19 20:59 Last Admin: 01/02/19 20:55 Dose: 7.5 mg Thiamine HCl (Vitamin B1) 100 mg PO DAILY JOSE Stop: 02/28/19 08:59 Last Admin: 01/03/19 08:13 Dose: 100 mg Vitamin D (Vitamin D3) 2,000 iu PO DAILY JOSE Stop: 03/01/19 08:59 Last Admin: 01/03/19 08:13 Dose: 2,000 iu Zolpidem Tartrate (Ambien) 5 mg PO HS PRN PRN Reason: Insomnia Stop: 02/28/19 05:25 General: demented HEENT: NC/AT, PERRLA Neck: Supple, No JVD Lungs: CTAB Cardiovascular: RRR, Normal S1, Normal S2 Abdomen: soft, non-tender, globular, positive bowel sound Extremities: excoriation Neurological: no change, disorganized - Procedures Procedures: Procedures Procedure Code Date GROUP PSYCHOTHERAPY 40401 07/02/15 GROUP PSYCHOTHERAPY GZHZZZZ 07/02/15 OTHER GROUP THERAPY 94.44 04/09/15 Internal Medicine Assmt/Plan - Assessment Assessment: leukocytosis dementia hypothroidism generalized weakness oa - Plan Plan: fall precaution nsaids cont on synthroid cpm dw rn Nutritional Asmnt/Malnutr-PDOC - Dietary Evaluation Malnutrition Findings (Please click <Entered> for more info): Nutritional Asmnt/Malnutrition Start: 01/02/19 10: 17 Text: Status: Complete Freq: Protocol: Document 01/02/19 10:17 LCHENG (Rec: 01/02/19 10:24 LCHENG [email or web address]) Nutritional Asmnt/Malnutrition Patient General Information Nutritional Screening Moderate Risk Diagnosis psychosis Pertinent Medical Hx/Surgical Hx CAD, asthma/COPD, thyroid disorder, dementia, cerebrovascular disease, anemia, occult thyroidism, paranoid schizophrenia Subjective Information Pt seen eating lunch in bed at time of visit, stated food is ok, likes coffee with all meals. Per EMR, PO intake 75- 100%. Current Diet Order/ Nutrition Support regular Pertinent Medications colace, synthroid, vit B1, vit D3 Pertinent Labs 12/29 TG 217 Nutritional Hx/Data Height 1.96 m Height (Calculated Centimeters) 195.6 Current Weight (lbs) 77.111 kg Weight (Calculated Kilograms) 77.1 Weight (Calculated Grams) 24356.7 [place] Body Weight 208 Body Mass Index (BMI) 20.1 Weight Status Approriate GI Symptoms GI Symptoms None Last BM 5/6 Difficult in: None Skin Integrity/Comment: dryness Current %PO Good (75-100%) Estimated Nutritional Goals BEE in Kcals: Using Current wt Calories/Kcals/Kg 25-30 Kcals Calculated 9205-6489 Protein: Using Current wt Protein g/k.8 Protein Calculated 62 Fluid: ml 1875-2340ml (1ml/kcal) Nutritional Problem No current Nutrition Prob Problem N/A Malnutrition Alert Is there a minimum of two criteria No selected? Query Text:Check all the applicable criteria. A minimum of two criteria are recommended for diagnosis of either severe or non-severe malnutrition. Malnutrition Related to Morbid Obesity Malnutrition related to morbid obesity No Intervention/Recommendation Comments 1. Continue with regular diet as ordered. 2. Monitor PO intake, wt, labs and skin integrity 3. F/U as low risk in 7 days Expected Outcomes/Goals Expected Outcomes/Goals 1. PO intake to meet at least 75% of nutritional needs. 2. Wt stability, skin to remain intact, labs to approach WNL.
--- NOTE | 2019-01-03 22:15 | Progress Notes ---
DATE: 01/03/2019 FOLLOWUP PROGRESS NOTE PROGRESS ON THE UNIT: Case discussed with staff of the patient, reviewed records. The patient continues to be confused, unpredictable, impulsive, needing redirection, continues to have poor insight, unable to make a safe plan for self-care, isolating himself, internally preoccupied. He is sleeping well and eating well. He is able to feed himself. No side effects to the medication, no sedation, no nausea, no extrapyramidal symptoms. We will continue to work with the patient in group therapy and milieu therapy, adjust the medication as needed. JOB# [id number]
[2019-01-04] MEDS: Levothyroxine 0.025 Mg Tab PO SCH (06:50)
[2019-01-04] MEDS: DIVALPROEX PO SCH ×2 (09:19→16:59)
[2019-01-04] MEDS: Aspirin 81mg Chewable Tab PO SCH (09:20)
[2019-01-04] MEDS: Vitamin D3 2,000 IU SGL PO SCH (09:20)
--- NOTE | 2019-01-04 11:48 | Internal Medicine Prog Note ---
Internal Medicine Subjective - Subjective Patient seen and examined:: with staff, chart reviewed Patient is:: awake, verbal, interactive, in bed Patient Complaints of:: congestion Per staff patient has:: no adverse event, no episodes of fall, poor appetite, tolerating meds Internal Medicine Objective - Results Result Diagrams: 12/29/18 21:19 12/29/18 21:19 Recent Labs: Laboratory Last Values WBC 11.1 Th/cmm (4.8-10.8) H 12/29/18 21:19 RBC 4.93 Mil/cmm (4.30-5.70) 12/29/18 21:19 Hgb 15.3 gm/dL (12-16) 12/29/18 21:19 Hct 45.2 % (41.0-60) 12/29/18 21: MCV 91.6 fl (80-99) 12/29/18 21:19 MCH 31.0 pg (26.0-30.0) H 12/29/18 21: MCHC Differential 33.8 pg (28.0-36.0) 12/29/18 21:19 RDW 13.5 % (11.5-20.0) 12/29/18 21:19 Plt Count 171 Th/cmm (150-400) 12/29/18 21:19 MPV 9.4 fl 12/29/18 21:19 Neutrophils % 49.4 % (40.0-80.0) 12/29/18 21:19 Lymphocytes % 30.9 % (20.0-50.0) 12/29/18 21: Monocytes % 7.8 % (2.0-10.0) 12/29/18 21:19 Eosinophils % 11.0 % (0.0-5.0) H 12/29/18 21:19 Basophils % 0.9 % (0.0-2.0) 12/29/18 21:19 Sodium 140 mEq/L (136-145) 12/29/18 21:19 Potassium 4.2 mEq/L (3.5-5.1) 12/29/18 21:19 Chloride 104 mEq/L (98-107) 12/29/18 21:19 Carbon Dioxide 25.5 mEq/L (21.0-31.0) 12/29/18 21:19 Anion Gap 14.7 (7.0-16.0) 12/29/18 21:19 BUN 22 mg/dL (7-25) 12/29/18 21:19 Creatinine 0.7 mg/dL (0.7-1.3) 12/29/18 21:19 Est GFR ( Amer) > 60.0 ml/min (>90) 12/29/18 21: Est GFR (Non-Af Amer) > 60.0 ml/min 12/29/18 21: BUN/Creatinine Ratio 31.4 12/29/18 21:19 Glucose 89 mg/dL (70-105) 12/29/18 21:19 Calcium 9.5 mg/dL (8.6-10.3) 12/29/18 21: Total Bilirubin 0.3 mg/dL (0.3-1.0) 12/29/18 21:19 AST 31 U/L (13-39) 12/29/18 21: ALT 45 U/L (7-52) 12/29/18 21: Alkaline Phosphatase 55 U/L (34-104) 12/29/18 21:19 Total Protein 7.3 gm/dL (6.0-8.3) 12/29/18 21: Albumin 4.2 gm/dL (4.2-5.5) 12/29/18 21: Globulin 3.1 gm/dL 12/29/18 21: Albumin/Globulin Ratio 1.4 (1.0-1.8) 12/29/18 21:19 Triglycerides 141 mg/dL (<150) 12/30/18 07:29 Cholesterol 175 mg/dL (<200) 12/30/18 07:29 LDL Cholesterol Direct 127 mg/dL (75-193) 12/30/18 07:29 HDL Cholesterol 39 mg/dL (23-92) 12/30/18 07:29 TSH 0.81 uIU/ml (0.34-5.60) 12/29/18 22:15 RPR NONREACTIVE (NONREACTIVE) 12/29/18 07:29 - Physical Exam Vitals and I&O: Vital Signs Temp 97.8 F 01/04/19 06:05 Pulse 50 01/04/19 06:05 Resp 19 01/04/19 06:05 BP 99/64 01/04/19 06:05 Pulse Ox 96 01/04/19 06:05 Intake & Output 01/03/19 01/04/19 01/04/19 18:59 06:59 18:59 Intake Total 850 300 Output Total 1 Balance 850 299 Intake: Oral 850 300 Output: Urine/Stool Mix 1 Other: # Voids 4 1 # Bowel Movements 1 0 Active Medications: Current Medications Acetaminophen (Tylenol) 650 mg PO Q6HR PRN PRN Reason: Pain or Fever >101 Stop: 02/28/19 01:37 Aspirin (Aspirin Chewable) 81 mg PO DAILY JOSE Stop: 02/28/19 08:59 Last Admin: 01/04/19 09:20 Dose: 81 mg Bisacodyl (Dulcolax 10 Mg Supp) 10 mg RC DAILY PRN PRN Reason: Constipation Stop: 02/28/19 01:37 Divalproex Sodium 125 mg/ (Divalproex Sodium 250 mg) 375 mg PO BID JOSE Stop: 02/28/19 08:59 Last Admin: 01/04/19 09:19 Dose: 375 mg Docusate Sodium (Colace) 100 mg PO DAILY JOSE Stop: 02/28/19 08:59 Last Admin: 01/04/19 09:20 Dose: 100 mg Donepezil HCl (Aricept) 10 mg PO HS [facility] Stop: 02/28/19 20:59 Last Admin: 01/03/19 20:38 Dose: 10 mg Dorzolamide/Timolol (Cosopt Ophth Soln) 1 drop EACH EYE BID JOSE Stop: 02/28/19 08:59 Last Admin: 01/04/19 09:19 Dose: 1 drop Levothyroxine Sodium (Synthroid) 0.025 mg PO QDAC JOSE Stop: 02/28/19 07:29 Last Admin: 01/04/19 06:50 Dose: 0.025 mg Lorazepam (Ativan) 0.5 mg PO Q6HR PRN; Protocol PRN Reason: Anxiety Stop: 02/28/19 05:23 Magnesium Hydroxide (Milk Of Magnesia) 30 ml PO Q72H PRN PRN Reason: Constipation Stop: 02/28/19 01:37 Olanzapine (Zyprexa) 7.5 mg PO HS [facility]; Protocol Stop: 02/28/19 20:59 Last Admin: 01/03/19 20:37 Dose: 7.5 mg Thiamine HCl (Vitamin B1) 100 mg PO DAILY JOSE Stop: 02/28/19 08:59 Last Admin: 01/04/19 09:19 Dose: 100 mg Vitamin D (Vitamin D3) 2,000 iu PO DAILY JOSE Stop: 03/01/19 08:59 Last Admin: 01/04/19 09:20 Dose: 2,000 iu Zolpidem Tartrate (Ambien) 5 mg PO HS PRN PRN Reason: Insomnia Stop: 02/28/19 05:25 General: demented HEENT: NC/AT, PERRLA Neck: Supple, No JVD Lungs: CTAB Cardiovascular: RRR, Normal S1, Normal S2 Abdomen: soft, non-tender, globular, positive bowel sound Extremities: excoriation Neurological: no change, disorganized - Procedures Procedures: Procedures Procedure Code Date GROUP PSYCHOTHERAPY 27824 07/02/15 GROUP PSYCHOTHERAPY GZHZZZZ 07/02/15 OTHER GROUP THERAPY 94.44 04/09/15 Internal Medicine Assmt/Plan - Assessment Assessment: leukocytosis dementia hypothroidism generalized weakness oa - Plan Plan: fall precaution nsaids cont on synthroid cpm dw rn Nutritional Asmnt/Malnutr-PDOC - Dietary Evaluation Malnutrition Findings (Please click <Entered> for more info): Nutritional Asmnt/Malnutrition Start: 01/02/19 10: 17 Text: Status: Complete Freq: Protocol: Document 01/02/19 10:17 LCHENG (Rec: 01/02/19 10:24 [email or web address] [email or web address]) Nutritional Asmnt/Malnutrition Patient General Information Nutritional Screening Moderate Risk Diagnosis psychosis Pertinent Medical Hx/Surgical Hx CAD, asthma/COPD, thyroid disorder, dementia, cerebrovascular disease, anemia, occult thyroidism, paranoid schizophrenia Subjective Information Pt seen eating lunch in bed at time of visit, stated food is ok, likes coffee with all meals. Per EMR, PO intake 75- 100%. Current Diet Order/ Nutrition Support regular Pertinent Medications colace, synthroid, vit B1, vit D3 Pertinent Labs 12/29 TG 217 Nutritional Hx/Data Height 1.96 m Height (Calculated Centimeters) 195.6 Current Weight (lbs) 77.111 kg Weight (Calculated Kilograms) 77.1 Weight (Calculated Grams) 45118.7 [place] Body Weight 208 Body Mass Index (BMI) 20.1 Weight Status Approriate GI Symptoms GI Symptoms None Last BM 5/6 Difficult in: None Skin Integrity/Comment: dryness Current %PO Good (75-100%) Estimated Nutritional Goals BEE in Kcals: Using Current wt Calories/Kcals/Kg 25-30 Kcals Calculated 7391-2914 Protein: Using Current wt Protein g/k.8 Protein Calculated 62 Fluid: ml 1875-2340ml (1ml/kcal) Nutritional Problem No current Nutrition Prob Problem N/A Malnutrition Alert Is there a minimum of two criteria No selected? Query Text:Check all the applicable criteria. A minimum of two criteria are recommended for diagnosis of either severe or non-severe malnutrition. Malnutrition Related to Morbid Obesity Malnutrition related to morbid obesity No Intervention/Recommendation Comments 1. Continue with regular diet as ordered. 2. Monitor PO intake, wt, labs and skin integrity 3. F/U as low risk in 7 days Expected Outcomes/Goals Expected Outcomes/Goals 1. PO intake to meet at least 75% of nutritional needs. 2. Wt stability, skin to remain intact, labs to approach WNL.
--- NOTE | 2019-01-04 21:35 | Progress Notes ---
DATE: 01/04/2019 Case was discussed with staff of the patient, reviewed records. The patient continue to be confused, internally preoccupied, stays to himself, unpredictable, impulsive, needing redirection. No side effects with the medication, no sedation, no nausea, no extrapyramidal symptoms. I will be adding Namenda to his medication to help improve his cognition. We will continue to work with the patient in group therapy, milieu therapy, and adjust the medication as needed. JOB# [id number]
[2019-01-05] MEDS: Levothyroxine 0.025 Mg Tab PO SCH (06:47)
[2019-01-05] MEDS: Vitamin D3 2,000 IU SGL PO SCH (08:52)
[2019-01-05] MEDS: Aspirin 81mg Chewable Tab PO SCH (08:53)
[2019-01-05] MEDS: DIVALPROEX PO SCH ×2 (08:54→17:27)
--- NOTE | 2019-01-05 11:42 | Internal Medicine Prog Note ---
Internal Medicine Subjective - Subjective Patient seen and examined:: with staff, chart reviewed Patient is:: awake, verbal, interactive, in bed Patient Complaints of:: congestion Per staff patient has:: no adverse event, no episodes of fall, poor appetite, tolerating meds Internal Medicine Objective - Results Result Diagrams: 12/29/18 21:19 12/29/18 21:19 Recent Labs: Laboratory Last Values WBC 11.1 Th/cmm (4.8-10.8) H 12/29/18 21:19 RBC 4.93 Mil/cmm (4.30-5.70) 12/29/18 21:19 Hgb 15.3 gm/dL (12-16) 12/29/18 21:19 Hct 45.2 % (41.0-60) 12/29/18 21: MCV 91.6 fl (80-99) 12/29/18 21:19 MCH 31.0 pg (26.0-30.0) H 12/29/18 21: MCHC Differential 33.8 pg (28.0-36.0) 12/29/18 21:19 RDW 13.5 % (11.5-20.0) 12/29/18 21:19 Plt Count 171 Th/cmm (150-400) 12/29/18 21:19 MPV 9.4 fl 12/29/18 21:19 Neutrophils % 49.4 % (40.0-80.0) 12/29/18 21:19 Lymphocytes % 30.9 % (20.0-50.0) 12/29/18 21: Monocytes % 7.8 % (2.0-10.0) 12/29/18 21:19 Eosinophils % 11.0 % (0.0-5.0) H 12/29/18 21:19 Basophils % 0.9 % (0.0-2.0) 12/29/18 21:19 Sodium 140 mEq/L (136-145) 12/29/18 21:19 Potassium 4.2 mEq/L (3.5-5.1) 12/29/18 21:19 Chloride 104 mEq/L (98-107) 12/29/18 21:19 Carbon Dioxide 25.5 mEq/L (21.0-31.0) 12/29/18 21:19 Anion Gap 14.7 (7.0-16.0) 12/29/18 21:19 BUN 22 mg/dL (7-25) 12/29/18 21:19 Creatinine 0.7 mg/dL (0.7-1.3) 12/29/18 21:19 Est GFR ( Amer) > 60.0 ml/min (>90) 12/29/18 21: Est GFR (Non-Af Amer) > 60.0 ml/min 12/29/18 21:19 BUN/Creatinine Ratio 31.4 12/29/18 21:19 Glucose 89 mg/dL (70-105) 12/29/18 21:19 Calcium 9.5 mg/dL (8.6-10.3) 12/29/18 21: Total Bilirubin 0.3 mg/dL (0.3-1.0) 12/29/18 21:19 AST 31 U/L (13-39) 12/29/18 21: ALT 45 U/L (7-52) 12/29/18 21: Alkaline Phosphatase 55 U/L (34-104) 12/29/18 21:19 Total Protein 7.3 gm/dL (6.0-8.3) 12/29/18 21:19 Albumin 4.2 gm/dL (4.2-5.5) 12/29/18 21: Globulin 3.1 gm/dL 12/29/18 21: Albumin/Globulin Ratio 1.4 (1.0-1.8) 12/29/18 21:19 Triglycerides 141 mg/dL (<150) 12/30/18 07:29 Cholesterol 175 mg/dL (<200) 12/30/18 07:29 LDL Cholesterol Direct 127 mg/dL (75-193) 12/30/18 07:29 HDL Cholesterol 39 mg/dL (23-92) 12/30/18 07:29 TSH 0.81 uIU/ml (0.34-5.60) 12/29/18 22:15 RPR NONREACTIVE (NONREACTIVE) 12/29/18 07:29 - Physical Exam Vitals and I&O: Vital Signs Temp 97.2 F 01/05/19 06:49 Pulse 81 01/05/19 06:49 Resp 19 01/05/19 06:49 BP 128/68 01/05/19 06:49 Pulse Ox 96 01/05/19 06:49 Intake & Output 01/04/19 01/05/19 01/05/19 18:59 06:59 18:59 Intake Total 180 Balance 180 Intake: Oral 180 Other: # Voids 3 2 # Bowel Movements 1 0 Active Medications: Current Medications Acetaminophen (Tylenol) 650 mg PO Q6HR PRN PRN Reason: Pain or Fever >101 Stop: 02/28/19 01:37 Last Admin: 01/05/19 09:30 Dose: 650 mg Aspirin (Aspirin Chewable) 81 mg PO DAILY JOSE Stop: 02/28/19 08:59 Last Admin: 01/05/19 08:53 Dose: 81 mg Bisacodyl (Dulcolax 10 Mg Supp) 10 mg RC DAILY PRN PRN Reason: Constipation Stop: 02/28/19 01:37 Divalproex Sodium 125 mg/ (Divalproex Sodium 250 mg) 375 mg PO BID JOSE Stop: 02/28/19 08:59 Last Admin: 01/05/19 08:54 Dose: 375 mg Docusate Sodium (Colace) 100 mg PO DAILY JOSE Stop: 02/28/19 08:59 Last Admin: 01/05/19 08:53 Dose: 100 mg Donepezil HCl (Aricept) 10 mg PO HS [facility] Stop: 02/28/19 20:59 Last Admin: 01/04/19 20:42 Dose: 10 mg Dorzolamide/Timolol (Cosopt Ophth Soln) 1 drop EACH EYE BID JOSE Stop: 02/28/19 08:59 Last Admin: 01/05/19 08:52 Dose: 1 drop Levothyroxine Sodium (Synthroid) 0.025 mg PO QDAC JOSE Stop: 02/28/19 07:29 Last Admin: 01/05/19 06:47 Dose: 0.025 mg Lorazepam (Ativan) 0.5 mg PO Q6HR PRN; Protocol PRN Reason: Anxiety Stop: 02/28/19 05:23 Magnesium Hydroxide (Milk Of Magnesia) 30 ml PO Q72H PRN PRN Reason: Constipation Stop: 02/28/19 01:37 Memantine (Namenda) 5 mg PO DAILY JOSE Stop: 03/06/19 08:59 Last Admin: 01/05/19 08:52 Dose: 5 mg Olanzapine (Zyprexa) 7.5 mg PO HS JOSE; Protocol Stop: 02/28/19 20:59 Last Admin: 01/04/19 20:43 Dose: 7.5 mg Thiamine HCl (Vitamin B1) 100 mg PO DAILY JOSE Stop: 02/28/19 08:59 Last Admin: 01/05/19 08:53 Dose: 100 mg Vitamin D (Vitamin D3) 2,000 iu PO DAILY JOSE Stop: 03/01/19 08:59 Last Admin: 01/05/19 08:52 Dose: 2,000 iu Zolpidem Tartrate (Ambien) 5 mg PO HS PRN PRN Reason: Insomnia Stop: 02/28/19 05:25 General: demented HEENT: NC/AT, PERRLA Neck: Supple, No JVD Lungs: CTAB Cardiovascular: RRR, Normal S1, Normal S2 Abdomen: soft, non-tender, globular, positive bowel sound Extremities: excoriation Neurological: no change, disorganized - Procedures Procedures: Procedures Procedure Code Date GROUP PSYCHOTHERAPY 26341 07/02/15 GROUP PSYCHOTHERAPY GZHZZZZ 07/02/15 OTHER GROUP THERAPY 94.44 04/09/15 Internal Medicine Assmt/Plan - Assessment Assessment: leukocytosis dementia hypothroidism generalized weakness oa - Plan Plan: fall precaution nsaids cont on synthroid cpm dw rn Nutritional Asmnt/Malnutr-PDOC - Dietary Evaluation Malnutrition Findings (Please click <Entered> for more info): Nutritional Asmnt/Malnutrition Start: 01/02/19 10: 17 Text: Status: Complete Freq: Protocol: Document 01/02/19 10:17 IRINEO (Rec: 01/02/19 10:24 IRINEO [email or web address]) Nutritional Asmnt/Malnutrition Patient General Information Nutritional Screening Moderate Risk Diagnosis psychosis Pertinent Medical Hx/Surgical Hx CAD, asthma/COPD, thyroid disorder, dementia, cerebrovascular disease, anemia, occult thyroidism, paranoid schizophrenia Subjective Information Pt seen eating lunch in bed at time of visit, stated food is ok, likes coffee with all meals. Per EMR, PO intake 75- 100%. Current Diet Order/ Nutrition Support regular Pertinent Medications colace, synthroid, vit B1, vit D3 Pertinent Labs 12/29 TG 217 Nutritional Hx/Data Height 1.96 m Height (Calculated Centimeters) 195.6 Current Weight (lbs) 77.111 kg Weight (Calculated Kilograms) 77.1 Weight (Calculated Grams) 91244.7 [place] Body Weight 208 Body Mass Index (BMI) 20.1 Weight Status Approriate GI Symptoms GI Symptoms None Last BM 5/6 Difficult in: None Skin Integrity/Comment: dryness Current %PO Good (75-100%) Estimated Nutritional Goals BEE in Kcals: Using Current wt Calories/Kcals/Kg 25-30 Kcals Calculated 9105-0114 Protein: Using Current wt Protein g/k.8 Protein Calculated 62 Fluid: ml 1875-2340ml (1ml/kcal) Nutritional Problem No current Nutrition Prob Problem N/A Malnutrition Alert Is there a minimum of two criteria No selected? Query Text:Check all the applicable criteria. A minimum of two criteria are recommended for diagnosis of either severe or non-severe malnutrition. Malnutrition Related to Morbid Obesity Malnutrition related to morbid obesity No Intervention/Recommendation Comments 1. Continue with regular diet as ordered. 2. Monitor PO intake, wt, labs and skin integrity 3. F/U as low risk in 7 days Expected Outcomes/Goals Expected Outcomes/Goals 1. PO intake to meet at least 75% of nutritional needs. 2. Wt stability, skin to remain intact, labs to approach WNL.
--- NOTE | 2019-01-05 22:35 | Progress Notes ---
DATE: 01/05/2019 Case was discussed with staff of the patient, reviewed records. The patient continues to be unpredictable, impulsive, needing redirection. Continues to have poor insight. Unable to make safe plan for self-care. He tolerated the medication with no side effects, no sedation, no nausea. He tend to isolate himself, not participating much. Sleeping and eating better. We will continue to work with the patient in group therapy, milieu therapy, and adjust the medication as needed. JOB# [id number]
[2019-01-06] MEDS: Levothyroxine 0.025 Mg Tab PO SCH (06:45)
[2019-01-06] MEDS: DIVALPROEX PO SCH ×3 (10:13→17:35)
[2019-01-06] MEDS: Aspirin 81mg Chewable Tab PO SCH (10:13)
[2019-01-06] MEDS: Vitamin D3 2,000 IU SGL PO SCH (10:21)
--- NOTE | 2019-01-06 12:12 | Internal Medicine Prog Note ---
Internal Medicine Subjective - Subjective Patient seen and examined:: with staff, chart reviewed Patient is:: awake, verbal, interactive, in bed Patient Complaints of:: congestion Per staff patient has:: no adverse event, no episodes of fall, poor appetite, tolerating meds Internal Medicine Objective - Results Result Diagrams: 12/29/18 21:19 12/29/18 21:19 Recent Labs: Laboratory Last Values WBC 11.1 Th/cmm (4.8-10.8) H 12/29/18 21:19 RBC 4.93 Mil/cmm (4.30-5.70) 12/29/18 21:19 Hgb 15.3 gm/dL (12-16) 12/29/18 21:19 Hct 45.2 % (41.0-60) 12/29/18 21: MCV 91.6 fl (80-99) 12/29/18 21:19 MCH 31.0 pg (26.0-30.0) H 12/29/18 21: MCHC Differential 33.8 pg (28.0-36.0) 12/29/18 21:19 RDW 13.5 % (11.5-20.0) 12/29/18 21:19 Plt Count 171 Th/cmm (150-400) 12/29/18 21:19 MPV 9.4 fl 12/29/18 21:19 Neutrophils % 49.4 % (40.0-80.0) 12/29/18 21:19 Lymphocytes % 30.9 % (20.0-50.0) 12/29/18 21: Monocytes % 7.8 % (2.0-10.0) 12/29/18 21:19 Eosinophils % 11.0 % (0.0-5.0) H 12/29/18 21:19 Basophils % 0.9 % (0.0-2.0) 12/29/18 21:19 Sodium 140 mEq/L (136-145) 12/29/18 21:19 Potassium 4.2 mEq/L (3.5-5.1) 12/29/18 21:19 Chloride 104 mEq/L (98-107) 12/29/18 21:19 Carbon Dioxide 25.5 mEq/L (21.0-31.0) 12/29/18 21:19 Anion Gap 14.7 (7.0-16.0) 12/29/18 21:19 BUN 22 mg/dL (7-25) 12/29/18 21:19 Creatinine 0.7 mg/dL (0.7-1.3) 12/29/18 21:19 Est GFR ( Amer) > 60.0 ml/min (>90) 12/29/18 21: Est GFR (Non-Af Amer) > 60.0 ml/min 12/29/18 21: BUN/Creatinine Ratio 31.4 12/29/18 21:19 Glucose 89 mg/dL (70-105) 12/29/18 21:19 Calcium 9.5 mg/dL (8.6-10.3) 12/29/18 21: Total Bilirubin 0.3 mg/dL (0.3-1.0) 12/29/18 21:19 AST 31 U/L (13-39) 12/29/18 21: ALT 45 U/L (7-52) 12/29/18 21: Alkaline Phosphatase 55 U/L (34-104) 12/29/18 21:19 Total Protein 7.3 gm/dL (6.0-8.3) 12/29/18 21: Albumin 4.2 gm/dL (4.2-5.5) 12/29/18 21: Globulin 3.1 gm/dL 12/29/18 21: Albumin/Globulin Ratio 1.4 (1.0-1.8) 12/29/18 21:19 Triglycerides 141 mg/dL (<150) 12/30/18 07:29 Cholesterol 175 mg/dL (<200) 12/30/18 07:29 LDL Cholesterol Direct 127 mg/dL (75-193) 12/30/18 07:29 HDL Cholesterol 39 mg/dL (23-92) 12/30/18 07:29 TSH 0.81 uIU/ml (0.34-5.60) 12/29/18 22:15 RPR NONREACTIVE (NONREACTIVE) 12/29/18 07:29 - Physical Exam Vitals and I&O: Vital Signs Temp 97.6 F 01/06/19 06:45 Pulse 70 01/06/19 06:45 Resp 19 01/06/19 06:45 BP 110/64 01/06/19 06:45 Pulse Ox 94 01/06/19 06:45 Intake & Output 01/05/19 01/06/19 01/06/19 18:59 06:59 18:59 Intake Total 800 120 Balance 800 120 Intake: Oral 800 120 Other: # Voids 3 2 # Bowel Movements 0 0 Active Medications: Current Medications Acetaminophen (Tylenol) 650 mg PO Q6HR PRN PRN Reason: Pain or Fever >101 Stop: 02/28/19 01:37 Last Admin: 01/05/19 09:30 Dose: 650 mg Aspirin (Aspirin Chewable) 81 mg PO DAILY JOSE Stop: 02/28/19 08:59 Last Admin: 01/06/19 10:13 Dose: 81 mg Bisacodyl (Dulcolax 10 Mg Supp) 10 mg RC DAILY PRN PRN Reason: Constipation Stop: 02/28/19 01:37 Divalproex Sodium 125 mg/ (Divalproex Sodium 250 mg) 375 mg PO BID JOSE Stop: 02/28/19 08:59 Last Admin: 01/06/19 10:18 Dose: 375 mg Docusate Sodium (Colace) 100 mg PO DAILY JOSE Stop: 02/28/19 08:59 Last Admin: 01/06/19 10:22 Dose: 100 mg Donepezil HCl (Aricept) 10 mg PO HS [facility] Stop: 02/28/19 20:59 Last Admin: 01/05/19 21:01 Dose: 10 mg Dorzolamide/Timolol (Cosopt Ophth Soln) 1 drop EACH EYE BID JOSE Stop: 02/28/19 08:59 Last Admin: 01/06/19 10:22 Dose: 1 drop Levothyroxine Sodium (Synthroid) 0.025 mg PO QDAC JOSE Stop: 02/28/19 07:29 Last Admin: 01/06/19 06:45 Dose: 0.025 mg Lorazepam (Ativan) 0.5 mg PO Q6HR PRN; Protocol PRN Reason: Anxiety Stop: 02/28/19 05:23 Last Admin: 01/06/19 10:21 Dose: 0.5 mg Magnesium Hydroxide (Milk Of Magnesia) 30 ml PO Q72H PRN PRN Reason: Constipation Stop: 02/28/19 01:37 Memantine (Namenda) 5 mg PO DAILY JOSE Stop: 03/06/19 08:59 Last Admin: 01/06/19 10:20 Dose: 5 mg Olanzapine (Zyprexa) 10 mg PO HS JOSE; Protocol Stop: 03/07/19 20:59 Thiamine HCl (Vitamin B1) 100 mg PO DAILY JOSE Stop: 02/28/19 08:59 Last Admin: 01/06/19 10:21 Dose: 100 mg Vitamin D (Vitamin D3) 2,000 iu PO DAILY JOSE Stop: 03/01/19 08:59 Last Admin: 01/06/19 10:21 Dose: 2,000 iu Zolpidem Tartrate (Ambien) 5 mg PO HS PRN PRN Reason: Insomnia Stop: 02/28/19 05:25 General: demented HEENT: NC/AT, PERRLA Neck: Supple, No JVD Lungs: CTAB Cardiovascular: RRR, Normal S1, Normal S2 Abdomen: soft, non-tender, globular, positive bowel sound Extremities: excoriation Neurological: no change, disorganized - Procedures Procedures: Procedures Procedure Code Date GROUP PSYCHOTHERAPY 67284 07/02/15 GROUP PSYCHOTHERAPY GZHZZZZ 07/02/15 OTHER GROUP THERAPY 94.44 04/09/15 Internal Medicine Assmt/Plan - Assessment Assessment: leukocytosis dementia hypothroidism generalized weakness oa - Plan Plan: fall precaution nsaids cont on synthroid cpm dw rn Nutritional Asmnt/Malnutr-PDOC - Dietary Evaluation Malnutrition Findings (Please click <Entered> for more info): Nutritional Asmnt/Malnutrition Start: 01/02/19 10: 17 Text: Status: Complete Freq: Protocol: Document 01/02/19 10:17 IRINEO (Rec: 01/02/19 10:24 IRINEO [email or web address]) Nutritional Asmnt/Malnutrition Patient General Information Nutritional Screening Moderate Risk Diagnosis psychosis Pertinent Medical Hx/Surgical Hx CAD, asthma/COPD, thyroid disorder, dementia, cerebrovascular disease, anemia, occult thyroidism, paranoid schizophrenia Subjective Information Pt seen eating lunch in bed at time of visit, stated food is ok, likes coffee with all meals. Per EMR, PO intake 75- 100%. Current Diet Order/ Nutrition Support regular Pertinent Medications colace, synthroid, vit B1, vit D3 Pertinent Labs 12/29 TG 217 Nutritional Hx/Data Height 1.96 m Height (Calculated Centimeters) 195.6 Current Weight (lbs) 77.111 kg Weight (Calculated Kilograms) 77.1 Weight (Calculated Grams) 37369.7 [place] Body Weight 208 Body Mass Index (BMI) 20.1 Weight Status Approriate GI Symptoms GI Symptoms None Last BM 5/6 Difficult in: None Skin Integrity/Comment: dryness Current %PO Good (75-100%) Estimated Nutritional Goals BEE in Kcals: Using Current wt Calories/Kcals/Kg 25-30 Kcals Calculated 2289-3698 Protein: Using Current wt Protein g/k.8 Protein Calculated 62 Fluid: ml 1875-2340ml (1ml/kcal) Nutritional Problem No current Nutrition Prob Problem N/A Malnutrition Alert Is there a minimum of two criteria No selected? Query Text:Check all the applicable criteria. A minimum of two criteria are recommended for diagnosis of either severe or non-severe malnutrition. Malnutrition Related to Morbid Obesity Malnutrition related to morbid obesity No Intervention/Recommendation Comments 1. Continue with regular diet as ordered. 2. Monitor PO intake, wt, labs and skin integrity 3. F/U as low risk in 7 days Expected Outcomes/Goals Expected Outcomes/Goals 1. PO intake to meet at least 75% of nutritional needs. 2. Wt stability, skin to remain intact, labs to approach WNL.
--- NOTE | 2019-01-07 01:20 | Progress Notes ---
DATE: 01/06/2019 Case was discussed with staff of the patient, reviewed records. The patient continues to stay to himself, internally preoccupied. Continues to have episodes of agitation, irritability. He is compliant with the medication with no side effects, no sedation, no nausea and no extrapyramidal symptoms. We are also working on discharge plan for this patient. He is also demented, confused. I will be increasing his Zyprexa to 10 mg at bedtime. I will continue to work with the patient in group therapy, milieu therapy and adjust the medication as needed. JOB# [id number]
[2019-01-07] MEDS: Levothyroxine 0.025 Mg Tab PO SCH (06:47)
[2019-01-07] MEDS: Aspirin 81mg Chewable Tab PO SCH (08:52)
[2019-01-07] MEDS: Vitamin D3 2,000 IU SGL PO SCH (08:53)
[2019-01-07] MEDS: DIVALPROEX PO SCH ×3 (08:53→17:57)
--- NOTE | 2019-01-07 14:39 | Internal Medicine Prog Note ---
Internal Medicine Subjective - Subjective Service Date: 01/07/19 Patient is:: awake, verbal, interactive, in bed Patient Complaints of:: congestion Per staff patient has:: no adverse event, no episodes of fall, poor appetite, tolerating meds Internal Medicine Objective - Results Result Diagrams: 12/29/18 21:19 12/29/18 21: Recent Labs: Laboratory Last Values WBC 11.1 Th/cmm (4.8-10.8) H 12/29/18 21:19 RBC 4.93 Mil/cmm (4.30-5.70) 12/29/18 21:19 Hgb 15.3 gm/dL (12-16) 12/29/18 21: Hct 45.2 % (41.0-60) 12/29/18 21: MCV 91.6 fl (80-99) 12/29/18 21:19 MCH 31.0 pg (26.0-30.0) H 12/29/18 21: MCHC Differential 33.8 pg (28.0-36.0) 12/29/18 21:19 RDW 13.5 % (11.5-20.0) 12/29/18 21:19 Plt Count 171 Th/cmm (150-400) 12/29/18 21:19 MPV 9.4 fl 12/29/18 21:19 Neutrophils % 49.4 % (40.0-80.0) 12/29/18 21:19 Lymphocytes % 30.9 % (20.0-50.0) 12/29/18 21: Monocytes % 7.8 % (2.0-10.0) 12/29/18 21:19 Eosinophils % 11.0 % (0.0-5.0) H 12/29/18 21:19 Basophils % 0.9 % (0.0-2.0) 12/29/18 21:19 Sodium 140 mEq/L (136-145) 12/29/18 21:19 Potassium 4.2 mEq/L (3.5-5.1) 12/29/18 21:19 Chloride 104 mEq/L (98-107) 12/29/18 21:19 Carbon Dioxide 25.5 mEq/L (21.0-31.0) 12/29/18 21:19 Anion Gap 14.7 (7.0-16.0) 12/29/18 21:19 BUN 22 mg/dL (7-25) 12/29/18 21:19 Creatinine 0.7 mg/dL (0.7-1.3) 12/29/18 21:19 Est GFR ( Amer) > 60.0 ml/min (>90) 12/29/18 21:19 Est GFR (Non-Af Amer) > 60.0 ml/min 12/29/18 21: BUN/Creatinine Ratio 31.4 12/29/18 21:19 Glucose 89 mg/dL (70-105) 12/29/18 21:19 Calcium 9.5 mg/dL (8.6-10.3) 12/29/18 21: Total Bilirubin 0.3 mg/dL (0.3-1.0) 12/29/18 21:19 AST 31 U/L (13-39) 12/29/18 21: ALT 45 U/L (7-52) 12/29/18 21: Alkaline Phosphatase 55 U/L (34-104) 12/29/18 21:19 Total Protein 7.3 gm/dL (6.0-8.3) 12/29/18 21: Albumin 4.2 gm/dL (4.2-5.5) 12/29/18 21: Globulin 3.1 gm/dL 12/29/18 21: Albumin/Globulin Ratio 1.4 (1.0-1.8) 12/29/18 21:19 Triglycerides 141 mg/dL (<150) 12/30/18 07:29 Cholesterol 175 mg/dL (<200) 12/30/18 07:29 LDL Cholesterol Direct 127 mg/dL (75-193) 12/30/18 07:29 HDL Cholesterol 39 mg/dL (23-92) 12/30/18 07:29 TSH 0.81 uIU/ml (0.34-5.60) 12/29/18 22:15 Valproic Acid 51.1 ug/mL (50.0-100.0) 01/07/19 06:45 RPR NONREACTIVE (NONREACTIVE) 12/29/18 07:29 - Physical Exam Vitals and I&O: Vital Signs Temp 97.5 F 01/07/19 14:00 Pulse 55 01/07/19 14:00 Resp 20 01/07/19 14:00 BP 101/63 01/07/19 14:00 Pulse Ox 96 01/07/19 14:00 Intake & Output 01/06/19 01/07/19 01/07/19 18:59 06:59 18:59 Intake Total 800 240 Output Total 120 Balance 800 120 Intake: Oral 800 240 Output: Urine 120 Other: # Voids 3 1 # Bowel Movements 1 Active Medications: Current Medications Acetaminophen (Tylenol) 650 mg PO Q6HR PRN PRN Reason: Pain or Fever >101 Stop: 02/28/19 01:37 Last Admin: 01/05/19 09:30 Dose: 650 mg Aspirin (Aspirin Chewable) 81 mg PO DAILY JOSE Stop: 02/28/19 08:59 Last Admin: 01/07/19 08:52 Dose: 81 mg Bisacodyl (Dulcolax 10 Mg Supp) 10 mg RC DAILY PRN PRN Reason: Constipation Stop: 02/28/19 01:37 Divalproex Sodium 125 mg/ (Divalproex Sodium 250 mg) 375 mg PO BID JOSE Stop: 02/28/19 08:59 Last Admin: 01/07/19 08:54 Dose: 375 mg Docusate Sodium (Colace) 100 mg PO DAILY JOSE Stop: 02/28/19 08:59 Last Admin: 01/07/19 08:53 Dose: 100 mg Donepezil HCl (Aricept) 10 mg PO HS JOSE Stop: 02/28/19 20:59 Last Admin: 01/06/19 21:02 Dose: 10 mg Dorzolamide/Timolol (Cosopt Ophth Soln) 1 drop EACH EYE BID JOSE Stop: 02/28/19 08:59 Last Admin: 01/06/19 17:00 Dose: 1 drop Levothyroxine Sodium (Synthroid) 0.025 mg PO QDAC JOSE Stop: 02/28/19 07:29 Last Admin: 01/07/19 06:47 Dose: 0.025 mg Lorazepam (Ativan) 0.5 mg PO Q6HR PRN; Protocol PRN Reason: Anxiety Stop: 02/28/19 05:23 Last Admin: 01/07/19 08:53 Dose: 0.5 mg Magnesium Hydroxide (Milk Of Magnesia) 30 ml PO Q72H PRN PRN Reason: Constipation Stop: 02/28/19 01:37 Memantine (Namenda) 5 mg PO DAILY JOSE Stop: 03/06/19 08:59 Last Admin: 01/07/19 08:53 Dose: 5 mg Olanzapine (Zyprexa) 10 mg PO HS [facility]; Protocol Stop: 03/07/19 20:59 Last Admin: 01/06/19 21:01 Dose: 10 mg Thiamine HCl (Vitamin B1) 100 mg PO DAILY [facility] Stop: 02/28/19 08:59 Last Admin: 01/06/19 10:21 Dose: 100 mg Vitamin D (Vitamin D3) 2,000 iu PO DAILY [facility] Stop: 03/01/19 08:59 Last Admin: 01/07/19 08:53 Dose: 2,000 iu Zolpidem Tartrate (Ambien) 5 mg PO HS PRN PRN Reason: Insomnia Stop: 02/28/19 05:25 General: demented HEENT: NC/AT, PERRLA Neck: Supple, No JVD Lungs: CTAB Cardiovascular: RRR, Normal S1, Normal S2 Abdomen: soft, non-tender, globular, positive bowel sound Extremities: excoriation Neurological: no change, disorganized - Procedures Procedures: Procedures Procedure Code Date GROUP PSYCHOTHERAPY 10461 07/02/15 GROUP PSYCHOTHERAPY GZHZZZZ 07/02/15 OTHER GROUP THERAPY 94.44 04/09/15 Internal Medicine Assmt/Plan - Assessment Assessment: leukocytosis dementia hypothroidism generalized weakness oa - Plan Plan: fall precaution nsaids cont on synthroid cpm Nutritional Asmnt/Malnutr-PDOC - Dietary Evaluation Malnutrition Findings (Please click <Entered> for more info): Nutritional Asmnt/Malnutrition Start: 01/02/19 10: 17 Text: Status: Complete Freq: Protocol: Document 01/02/19 10:17 IRINEO (Rec: 01/02/19 10:24 IRINEO [email or web address]) Nutritional Asmnt/Malnutrition Patient General Information Nutritional Screening Moderate Risk Diagnosis psychosis Pertinent Medical Hx/Surgical Hx CAD, asthma/COPD, thyroid disorder, dementia, cerebrovascular disease, anemia, occult thyroidism, paranoid schizophrenia Subjective Information Pt seen eating lunch in bed at time of visit, stated food is ok, likes coffee with all meals. Per EMR, PO intake 75- 100%. Current Diet Order/ Nutrition Support regular Pertinent Medications colace, synthroid, vit B1, vit D3 Pertinent Labs 5/2 TG 217 Nutritional Hx/Data Height 6 ft 5 in Height (Calculated Centimeters) 195.6 Current Weight (lbs) 170 lb Weight (Calculated Kilograms) 77.1 Weight (Calculated Grams) 12519.7 [place] Body Weight 208 Body Mass Index (BMI) 20.1 Weight Status Approriate GI Symptoms GI Symptoms None Last BM 5/6 Difficult in: None Skin Integrity/Comment: dryness Current %PO Good (75-100%) Estimated Nutritional Goals BEE in Kcals: Using Current wt Calories/Kcals/Kg 25-30 Kcals Calculated 6674-9067 Protein: Using Current wt Protein g/k.8 Protein Calculated 62 Fluid: ml 1875-2340ml (1ml/kcal) Nutritional Problem No current Nutrition Prob Problem N/A Malnutrition Alert Is there a minimum of two criteria No selected? Query Text:Check all the applicable criteria. A minimum of two criteria are recommended for diagnosis of either severe or non-severe malnutrition. Malnutrition Related to Morbid Obesity Malnutrition related to morbid obesity No Intervention/Recommendation Comments 1. Continue with regular diet as ordered. 2. Monitor PO intake, wt, labs and skin integrity 3. F/U as low risk in 7 days Expected Outcomes/Goals Expected Outcomes/Goals 1. PO intake to meet at least 75% of nutritional needs. 2. Wt stability, skin to remain intact, labs to approach WNL.
--- NOTE | 2019-01-08 01:13 | Progress Notes ---
DATE: 01/07/2019 COVERING FOR: Dr. Kennedy. The chart reviewed and the patient interviewed. Also discussed the patient's condition with the staff and reviewed records and labs. The patient continued to be impulsive and has unpredictable behavior. Also, is still isolative and withdrawn and interacting minimally with others. The patient also still has mood swings and labile affect. Also, is still forgetful and needs lots of redirections. Otherwise, the patient continued to take Depakote and Aricept and Zyprexa with no side effects. ASSESSMENT: The patient is still agitated and has unpredictable behavior. TREATMENT PLAN: Continue medications at same dose. Also, continue to monitor his behavior. Also, we will get Depakote blood level and continue to follow up. JOB# [id number]
[2019-01-08] MEDS: Levothyroxine 0.025 Mg Tab PO SCH (06:39)
--- NOTE | 2019-01-08 08:35 | Internal Medicine Prog Note ---
Internal Medicine Subjective - Subjective Service Date: 01/08/19 Patient is:: awake, verbal, interactive, in bed Patient Complaints of:: congestion Per staff patient has:: no adverse event, no episodes of fall, poor appetite, tolerating meds Internal Medicine Objective - Results Result Diagrams: 12/29/18 21:19 12/29/18 21: Recent Labs: Laboratory Last Values WBC 11.1 Th/cmm (4.8-10.8) H 12/29/18 21:19 RBC 4.93 Mil/cmm (4.30-5.70) 12/29/18 21:19 Hgb 15.3 gm/dL (12-16) 12/29/18 21: Hct 45.2 % (41.0-60) 12/29/18 21: MCV 91.6 fl (80-99) 12/29/18 21:19 MCH 31.0 pg (26.0-30.0) H 12/29/18 21: MCHC Differential 33.8 pg (28.0-36.0) 12/29/18 21:19 RDW 13.5 % (11.5-20.0) 12/29/18 21:19 Plt Count 171 Th/cmm (150-400) 12/29/18 21:19 MPV 9.4 fl 12/29/18 21:19 Neutrophils % 49.4 % (40.0-80.0) 12/29/18 21:19 Lymphocytes % 30.9 % (20.0-50.0) 12/29/18 21: Monocytes % 7.8 % (2.0-10.0) 12/29/18 21:19 Eosinophils % 11.0 % (0.0-5.0) H 12/29/18 21:19 Basophils % 0.9 % (0.0-2.0) 12/29/18 21:19 Sodium 140 mEq/L (136-145) 12/29/18 21:19 Potassium 4.2 mEq/L (3.5-5.1) 12/29/18 21:19 Chloride 104 mEq/L (98-107) 12/29/18 21:19 Carbon Dioxide 25.5 mEq/L (21.0-31.0) 12/29/18 21:19 Anion Gap 14.7 (7.0-16.0) 12/29/18 21:19 BUN 22 mg/dL (7-25) 12/29/18 21:19 Creatinine 0.7 mg/dL (0.7-1.3) 12/29/18 21:19 Est GFR ( Amer) > 60.0 ml/min (>90) 12/29/18 21: Est GFR (Non-Af Amer) > 60.0 ml/min 12/29/18 21: BUN/Creatinine Ratio 31.4 12/29/18 21:19 Glucose 89 mg/dL (70-105) 12/29/18 21:19 Calcium 9.5 mg/dL (8.6-10.3) 12/29/18 21: Total Bilirubin 0.3 mg/dL (0.3-1.0) 12/29/18 21:19 AST 31 U/L (13-39) 12/29/18 21: ALT 45 U/L (7-52) 12/29/18 21: Alkaline Phosphatase 55 U/L (34-104) 12/29/18 21:19 Total Protein 7.3 gm/dL (6.0-8.3) 12/29/18 21: Albumin 4.2 gm/dL (4.2-5.5) 12/29/18 21: Globulin 3.1 gm/dL 12/29/18 21: Albumin/Globulin Ratio 1.4 (1.0-1.8) 12/29/18 21:19 Triglycerides 141 mg/dL (<150) 12/30/18 07:29 Cholesterol 175 mg/dL (<200) 12/30/18 07:29 LDL Cholesterol Direct 127 mg/dL (75-193) 12/30/18 07:29 HDL Cholesterol 39 mg/dL (23-92) 12/30/18 07:29 TSH 0.81 uIU/ml (0.34-5.60) 12/29/18 22:15 Valproic Acid 51.1 ug/mL (50.0-100.0) 01/07/19 06:45 RPR NONREACTIVE (NONREACTIVE) 12/29/18 07:29 - Physical Exam Vitals and I&O: Vital Signs Temp 98 F 01/08/19 06:00 Pulse 76 01/08/19 06:00 Resp 18 01/08/19 06:00 BP 95/56 01/08/19 06:00 Pulse Ox 96 01/08/19 06:00 Intake & Output 01/07/19 01/08/19 01/08/19 18:59 06:59 18:59 Intake Total 480 Output Total 2 Balance 478 Intake: Oral 480 Output: Urine/Stool Mix 2 Other: # Voids 1 Active Medications: Current Medications Acetaminophen (Tylenol) 650 mg PO Q6HR PRN PRN Reason: Pain or Fever >101 Stop: 02/28/19 01:37 Last Admin: 01/05/19 09:30 Dose: 650 mg Aspirin (Aspirin Chewable) 81 mg PO DAILY JOSE Stop: 02/28/19 08:59 Last Admin: 01/07/19 08:52 Dose: 81 mg Bisacodyl (Dulcolax 10 Mg Supp) 10 mg RC DAILY PRN PRN Reason: Constipation Stop: 02/28/19 01:37 Divalproex Sodium 125 mg/ (Divalproex Sodium 250 mg) 375 mg PO BID JOSE Stop: 02/28/19 08:59 Last Admin: 01/07/19 17:57 Dose: Not Given Docusate Sodium (Colace) 100 mg PO DAILY JOSE Stop: 02/28/19 08:59 Last Admin: 01/07/19 08:53 Dose: 100 mg Donepezil HCl (Aricept) 10 mg PO HS JOSE Stop: 02/28/19 20:59 Last Admin: 01/07/19 21:30 Dose: 10 mg Dorzolamide/Timolol (Cosopt Ophth Soln) 1 drop EACH EYE BID JOSE Stop: 02/28/19 08:59 Last Admin: 01/07/19 17:56 Dose: Not Given Levothyroxine Sodium (Synthroid) 0.025 mg PO QDAC JOSE Stop: 02/28/19 07:29 Last Admin: 01/08/19 06:39 Dose: 0.025 mg Lorazepam (Ativan) 0.5 mg PO Q6HR PRN; Protocol PRN Reason: Anxiety Stop: 02/28/19 05:23 Last Admin: 01/07/19 08:53 Dose: 0.5 mg Magnesium Hydroxide (Milk Of Magnesia) 30 ml PO Q72H PRN PRN Reason: Constipation Stop: 02/28/19 01:37 Memantine (Namenda) 5 mg PO DAILY JOSE Stop: 03/06/19 08:59 Last Admin: 01/07/19 08:53 Dose: 5 mg Olanzapine (Zyprexa) 10 mg PO HS JOSE; Protocol Stop: 03/07/19 20:59 Last Admin: 01/07/19 21:30 Dose: 10 mg Thiamine HCl (Vitamin B1) 100 mg PO DAILY JOSE Stop: 02/28/19 08:59 Last Admin: 01/07/19 09:00 Dose: 100 mg Vitamin D (Vitamin D3) 2,000 iu PO DAILY JOSE Stop: 03/01/19 08:59 Last Admin: 01/07/19 08:53 Dose: 2,000 iu Zolpidem Tartrate (Ambien) 5 mg PO HS PRN PRN Reason: Insomnia Stop: 02/28/19 05:25 Last Admin: 01/07/19 21:30 Dose: 5 mg General: demented HEENT: NC/AT, PERRLA Neck: Supple, No JVD Lungs: CTAB Cardiovascular: RRR, Normal S1, Normal S2 Abdomen: soft, non-tender, globular, positive bowel sound Extremities: excoriation Neurological: no change, disorganized - Procedures Procedures: Procedures Procedure Code Date GROUP PSYCHOTHERAPY 03256 07/02/15 GROUP PSYCHOTHERAPY GZHZZZZ 07/02/15 OTHER GROUP THERAPY 94.44 04/09/15 Internal Medicine Assmt/Plan - Assessment Assessment: leukocytosis dementia hypothroidism generalized weakness oa - Plan Plan: fall precaution nsaids cont on synthroid cpm Nutritional Asmnt/Malnutr-PDOC - Dietary Evaluation Malnutrition Findings (Please click <Entered> for more info): Nutritional Asmnt/Malnutrition Start: 01/02/19 10: 17 Text: Status: Complete Freq: Protocol: Document 01/02/19 10:17 IRINEO (Rec: 01/02/19 10:24 IRINEO [email or web address]) Nutritional Asmnt/Malnutrition Patient General Information Nutritional Screening Moderate Risk Diagnosis psychosis Pertinent Medical Hx/Surgical Hx CAD, asthma/COPD, thyroid disorder, dementia, cerebrovascular disease, anemia, occult thyroidism, paranoid schizophrenia Subjective Information Pt seen eating lunch in bed at time of visit, stated food is ok, likes coffee with all meals. Per EMR, PO intake 75- 100%. Current Diet Order/ Nutrition Support regular Pertinent Medications colace, synthroid, vit B1, vit D3 Pertinent Labs 5/2 TG 217 Nutritional Hx/Data Height 6 ft 5 in Height (Calculated Centimeters) 195.6 Current Weight (lbs) 170 lb Weight (Calculated Kilograms) 77.1 Weight (Calculated Grams) 62006.7 [place] Body Weight 208 Body Mass Index (BMI) 20.1 Weight Status Approriate GI Symptoms GI Symptoms None Last BM 5/6 Difficult in: None Skin Integrity/Comment: dryness Current %PO Good (75-100%) Estimated Nutritional Goals BEE in Kcals: Using Current wt Calories/Kcals/Kg 25-30 Kcals Calculated 6929-6087 Protein: Using Current wt Protein g/k.8 Protein Calculated 62 Fluid: ml 1875-2340ml (1ml/kcal) Nutritional Problem No current Nutrition Prob Problem N/A Malnutrition Alert Is there a minimum of two criteria No selected? Query Text:Check all the applicable criteria. A minimum of two criteria are recommended for diagnosis of either severe or non-severe malnutrition. Malnutrition Related to Morbid Obesity Malnutrition related to morbid obesity No Intervention/Recommendation Comments 1. Continue with regular diet as ordered. 2. Monitor PO intake, wt, labs and skin integrity 3. F/U as low risk in 7 days Expected Outcomes/Goals Expected Outcomes/Goals 1. PO intake to meet at least 75% of nutritional needs. 2. Wt stability, skin to remain intact, labs to approach WNL.
[2019-01-08] MEDS: Aspirin 81mg Chewable Tab PO SCH (10:51)
[2019-01-08] MEDS: DIVALPROEX PO SCH ×2 (10:52→18:18)
[2019-01-08] MEDS: Vitamin D3 2,000 IU SGL PO SCH (10:53)
--- NOTE | 2019-01-08 22:25 | Progress Notes ---
DATE: 01/08/2019 SUBJECTIVE: Chart was reviewed and the patient interviewed. Also discussed the patient's condition with the staff and reviewed records and labs. The patient continued to have impulsive behavior and unpredictable. The patient also is still withdrawn and is still does not want to communicate much or interact much with others. He still has mood swings and he is still easily irritable. Otherwise, the patient is compliant with taking his medications. Depakote blood level was done yesterday. We will continue monitoring his behavior and monitor his medications and continue to follow up. JOB# [id number]
[2019-01-09] MEDS: Levothyroxine 0.025 Mg Tab PO SCH (06:36)
[2019-01-09] MEDS: DIVALPROEX PO SCH ×2 (08:46→17:02)
[2019-01-09] MEDS: Aspirin 81mg Chewable Tab PO SCH (08:46)
[2019-01-09] MEDS: Vitamin D3 2,000 IU SGL PO SCH (08:46)
--- NOTE | 2019-01-09 12:04 | Internal Medicine Prog Note ---
Internal Medicine Subjective - Subjective Patient seen and examined:: with staff, chart reviewed Patient is:: awake, verbal, interactive, in bed Patient Complaints of:: congestion Per staff patient has:: no adverse event, no episodes of fall, poor appetite, tolerating meds Internal Medicine Objective - Results Result Diagrams: 12/29/18 21:19 12/29/18 21:19 Recent Labs: Laboratory Last Values WBC 11.1 Th/cmm (4.8-10.8) H 12/29/18 21:19 RBC 4.93 Mil/cmm (4.30-5.70) 12/29/18 21:19 Hgb 15.3 gm/dL (12-16) 12/29/18 21:19 Hct 45.2 % (41.0-60) 12/29/18 21: MCV 91.6 fl (80-99) 12/29/18 21:19 MCH 31.0 pg (26.0-30.0) H 12/29/18 21: MCHC Differential 33.8 pg (28.0-36.0) 12/29/18 21:19 RDW 13.5 % (11.5-20.0) 12/29/18 21:19 Plt Count 171 Th/cmm (150-400) 12/29/18 21:19 MPV 9.4 fl 12/29/18 21:19 Neutrophils % 49.4 % (40.0-80.0) 12/29/18 21:19 Lymphocytes % 30.9 % (20.0-50.0) 12/29/18 21: Monocytes % 7.8 % (2.0-10.0) 12/29/18 21:19 Eosinophils % 11.0 % (0.0-5.0) H 12/29/18 21:19 Basophils % 0.9 % (0.0-2.0) 12/29/18 21:19 Sodium 140 mEq/L (136-145) 12/29/18 21:19 Potassium 4.2 mEq/L (3.5-5.1) 12/29/18 21:19 Chloride 104 mEq/L (98-107) 12/29/18 21:19 Carbon Dioxide 25.5 mEq/L (21.0-31.0) 12/29/18 21:19 Anion Gap 14.7 (7.0-16.0) 12/29/18 21:19 BUN 22 mg/dL (7-25) 12/29/18 21:19 Creatinine 0.7 mg/dL (0.7-1.3) 12/29/18 21:19 Est GFR ( Amer) > 60.0 ml/min (>90) 12/29/18 21: Est GFR (Non-Af Amer) > 60.0 ml/min 12/29/18 21:19 BUN/Creatinine Ratio 31.4 12/29/18 21:19 Glucose 89 mg/dL (70-105) 12/29/18 21:19 Calcium 9.5 mg/dL (8.6-10.3) 12/29/18 21: Total Bilirubin 0.3 mg/dL (0.3-1.0) 12/29/18 21:19 AST 31 U/L (13-39) 12/29/18 21: ALT 45 U/L (7-52) 12/29/18 21:19 Alkaline Phosphatase 55 U/L (34-104) 12/29/18 21:19 Total Protein 7.3 gm/dL (6.0-8.3) 12/29/18 21:19 Albumin 4.2 gm/dL (4.2-5.5) 12/29/18 21:19 Globulin 3.1 gm/dL 12/29/18 21: Albumin/Globulin Ratio 1.4 (1.0-1.8) 12/29/18 21:19 Triglycerides 141 mg/dL (<150) 12/30/18 07:29 Cholesterol 175 mg/dL (<200) 12/30/18 07:29 LDL Cholesterol Direct 127 mg/dL (75-193) 12/30/18 07:29 HDL Cholesterol 39 mg/dL (23-92) 12/30/18 07:29 TSH 0.81 uIU/ml (0.34-5.60) 12/29/18 22:15 Valproic Acid 51.1 ug/mL (50.0-100.0) 01/07/19 06:45 RPR NONREACTIVE (NONREACTIVE) 12/29/18 07:29 - Physical Exam Vitals and I&O: Vital Signs Temp 98.3 F 01/09/19 06:01 Pulse 50 01/09/19 06:01 Resp 18 01/09/19 08:00 BP 114/74 01/09/19 08:00 Pulse Ox 96 01/09/19 06:01 Intake & Output 01/08/19 01/09/19 01/09/19 18:59 06:59 18:59 Intake Total 900 300 Output Total 1 Balance 900 299 Intake: Oral 900 300 Output: Urine/Stool Mix 1 Other: # Voids 4 2 # Bowel Movements 0 0 Active Medications: Current Medications Acetaminophen (Tylenol) 650 mg PO Q6HR PRN PRN Reason: Pain or Fever >101 Stop: 02/28/19 01:37 Last Admin: 01/05/19 09:30 Dose: 650 mg Aspirin (Aspirin Chewable) 81 mg PO DAILY [facility] Stop: 02/28/19 08:59 Last Admin: 01/09/19 08:46 Dose: 81 mg Bisacodyl (Dulcolax 10 Mg Supp) 10 mg RC DAILY PRN PRN Reason: Constipation Stop: 02/28/19 01:37 Divalproex Sodium 125 mg/ (Divalproex Sodium 250 mg) 375 mg PO BID JOSE Stop: 02/28/19 08:59 Last Admin: 01/09/19 08:46 Dose: 375 mg Docusate Sodium (Colace) 100 mg PO DAILY [facility] Stop: 02/28/19 08:59 Last Admin: 01/09/19 08:46 Dose: 100 mg Donepezil HCl (Aricept) 10 mg PO HS JOSE Stop: 02/28/19 20:59 Last Admin: 01/08/19 20:53 Dose: 10 mg Dorzolamide/Timolol (Cosopt Ophth Soln) 1 drop EACH EYE BID JOSE Stop: 02/28/19 08:59 Last Admin: 01/09/19 08:46 Dose: 1 drop Levothyroxine Sodium (Synthroid) 0.025 mg PO QDAC JOSE Stop: 02/28/19 07:29 Last Admin: 01/09/19 06:36 Dose: 0.025 mg Lorazepam (Ativan) 0.5 mg PO Q6HR PRN; Protocol PRN Reason: Anxiety Stop: 02/28/19 05:23 Last Admin: 01/07/19 08:53 Dose: 0.5 mg Magnesium Hydroxide (Milk Of Magnesia) 30 ml PO Q72H PRN PRN Reason: Constipation Stop: 02/28/19 01:37 Memantine (Namenda) 5 mg PO DAILY JOSE Stop: 03/06/19 08:59 Last Admin: 01/09/19 08:46 Dose: 5 mg Olanzapine (Zyprexa) 10 mg PO HS JOSE; Protocol Stop: 03/07/19 20:59 Last Admin: 01/08/19 20:53 Dose: 10 mg Thiamine HCl (Vitamin B1) 100 mg PO DAILY JOSE Stop: 02/28/19 08:59 Last Admin: 01/09/19 08:46 Dose: 100 mg Vitamin D (Vitamin D3) 2,000 iu PO DAILY JOSE Stop: 03/01/19 08:59 Last Admin: 01/09/19 08:46 Dose: 2,000 iu Zolpidem Tartrate (Ambien) 5 mg PO HS PRN PRN Reason: Insomnia Stop: 02/28/19 05:25 Last Admin: 01/08/19 20:53 Dose: 5 mg General: demented HEENT: NC/AT, PERRLA Neck: Supple, No JVD Lungs: CTAB Cardiovascular: RRR, Normal S1, Normal S2 Abdomen: soft, non-tender, globular, positive bowel sound Extremities: excoriation Neurological: no change, disorganized - Procedures Procedures: Procedures Procedure Code Date GROUP PSYCHOTHERAPY 96142 07/02/15 GROUP PSYCHOTHERAPY GZHZZZZ 07/02/15 OTHER GROUP THERAPY 94.44 04/09/15 Internal Medicine Assmt/Plan - Assessment Assessment: leukocytosis dementia hypothroidism generalized weakness oa - Plan Plan: fall precaution nsaids cont on synthroid cpm dw rn Nutritional Asmnt/Malnutr-PDOC - Dietary Evaluation Malnutrition Findings (Please click <Entered> for more info): Nutritional Asmnt/Malnutrition Start: 01/02/19 10: 17 Text: Status: Complete Freq: Protocol: Document 01/02/19 10:17 IRINEO (Rec: 01/02/19 10:24 IRINEO [email or web address]) Nutritional Asmnt/Malnutrition Patient General Information Nutritional Screening Moderate Risk Diagnosis psychosis Pertinent Medical Hx/Surgical Hx CAD, asthma/COPD, thyroid disorder, dementia, cerebrovascular disease, anemia, occult thyroidism, paranoid schizophrenia Subjective Information Pt seen eating lunch in bed at time of visit, stated food is ok, likes coffee with all meals. Per EMR, PO intake 75- 100%. Current Diet Order/ Nutrition Support regular Pertinent Medications colace, synthroid, vit B1, vit D3 Pertinent Labs 5/2 TG 217 Nutritional Hx/Data Height 1.96 m Height (Calculated Centimeters) 195.6 Current Weight (lbs) 77.111 kg Weight (Calculated Kilograms) 77.1 Weight (Calculated Grams) 00387.7 [place] Body Weight 208 Body Mass Index (BMI) 20.1 Weight Status Approriate GI Symptoms GI Symptoms None Last BM 5/6 Difficult in: None Skin Integrity/Comment: dryness Current %PO Good (75-100%) Estimated Nutritional Goals BEE in Kcals: Using Current wt Calories/Kcals/Kg 25-30 Kcals Calculated 5186-1104 Protein: Using Current wt Protein g/k.8 Protein Calculated 62 Fluid: ml 1875-2340ml (1ml/kcal) Nutritional Problem No current Nutrition Prob Problem N/A Malnutrition Alert Is there a minimum of two criteria No selected? Query Text:Check all the applicable criteria. A minimum of two criteria are recommended for diagnosis of either severe or non-severe malnutrition. Malnutrition Related to Morbid Obesity Malnutrition related to morbid obesity No Intervention/Recommendation Comments 1. Continue with regular diet as ordered. 2. Monitor PO intake, wt, labs and skin integrity 3. F/U as low risk in 7 days Expected Outcomes/Goals Expected Outcomes/Goals 1. PO intake to meet at least 75% of nutritional needs. 2. Wt stability, skin to remain intact, labs to approach WNL.
--- NOTE | 2019-01-10 01:20 | Progress Notes ---
DATE: 01/09/2019 FOLLOWUP PROGRESS NOTE Case was discussed with staff of the patient, reviewed records. The patient in general continues to stay in bed, continues to be internally preoccupied. His agitation is not as prominent. He is unable to carry on a conversation. He is tolerating increase in Zyprexa 3 days ago to 10 mg with no side effects, no sedation or nausea. He seems to be showing progress. He continues to do well, I do plan to discharge him tomorrow. He will be going to [facility]. No side effects to the medication, no sedation, no nausea, no extrapyramidal symptoms. We will continue to work with the patient in group therapy, milieu therapy, and adjust the medications as needed. JOB# [id number]
[2019-01-10] MEDS: Levothyroxine 0.025 Mg Tab PO SCH (06:46)
[2019-01-10] MEDS: Aspirin 81mg Chewable Tab PO SCH (08:54)
[2019-01-10] MEDS: DIVALPROEX PO SCH ×2 (08:54→16:40)
[2019-01-10] MEDS: Vitamin D3 2,000 IU SGL PO SCH (08:54)
--- NOTE | 2019-01-10 12:04 | Discharge Summary ---
DATE OF DISCHARGE: 01/10/2019 IDENTIFYING INFORMATION: The patient is a 58-year-old male. The patient admitted because expressed desire to . Has no plans. When I talked to him, he was a poor historian, unable to tell me his age, he believes he is 39 years of age. He is 10 years. He believes he is homeless, living on the [address]. Denies any visual hallucination, came from a nursing facility. Unable to tell me the date, where he is, why he is here. The patient is demented, confused, unable to give much information. ALLERGIES: THE PATIENT IS ALLERGIC FLOMAX AND IODINE. COURSE IN THE HOSPITAL: The patient was continued with medication Depakote 375 mg twice a day, Aricept 10 mg at bedtime and he was on Zyprexa and I increased the dose to10 mg at bedtime because of agitation, irritability. The patient will continue with thiamine, magnesium, levothyroxine, timolol. The patient progressively got better. He was no longer acting out or expressing any desire to . He was sleeping well, eating well, so as he improved. He was no longer acting psychotic. We felt he could be discharged to a skilled level of care. Depakote level 51.1 which is within acceptable range. FINAL DIAGNOSES: Bipolar disorder, depressed, dementia. MEDICAL DIAGNOSES: Deferred to the medical doctor. FOLLOWUP: The patient will follow up with the psychiatrist and going back to the nursing facility. EXPECTED OUTCOME: Stable if the patient complies with the above. [facility]# [id number] [facility]
--- NOTE | 2019-01-10 12:12 | Internal Medicine Prog Note ---
Internal Medicine Subjective - Subjective Patient seen and examined:: with staff, chart reviewed Patient is:: awake, verbal, interactive, in bed Patient Complaints of:: congestion Per staff patient has:: no adverse event, no episodes of fall, poor appetite, tolerating meds Internal Medicine Objective - Results Result Diagrams: 12/29/18 21:19 12/29/18 21:19 Recent Labs: Laboratory Last Values WBC 11.1 Th/cmm (4.8-10.8) H 12/29/18 21:19 RBC 4.93 Mil/cmm (4.30-5.70) 12/29/18 21:19 Hgb 15.3 gm/dL (12-16) 12/29/18 21:19 Hct 45.2 % (41.0-60) 12/29/18 21: MCV 91.6 fl (80-99) 12/29/18 21:19 MCH 31.0 pg (26.0-30.0) H 12/29/18 21: MCHC Differential 33.8 pg (28.0-36.0) 12/29/18 21:19 RDW 13.5 % (11.5-20.0) 12/29/18 21:19 Plt Count 171 Th/cmm (150-400) 12/29/18 21:19 MPV 9.4 fl 12/29/18 21:19 Neutrophils % 49.4 % (40.0-80.0) 12/29/18 21:19 Lymphocytes % 30.9 % (20.0-50.0) 12/29/18 21: Monocytes % 7.8 % (2.0-10.0) 12/29/18 21:19 Eosinophils % 11.0 % (0.0-5.0) H 12/29/18 21:19 Basophils % 0.9 % (0.0-2.0) 12/29/18 21:19 Sodium 140 mEq/L (136-145) 12/29/18 21:19 Potassium 4.2 mEq/L (3.5-5.1) 12/29/18 21:19 Chloride 104 mEq/L (98-107) 12/29/18 21:19 Carbon Dioxide 25.5 mEq/L (21.0-31.0) 12/29/18 21:19 Anion Gap 14.7 (7.0-16.0) 12/29/18 21:19 BUN 22 mg/dL (7-25) 12/29/18 21:19 Creatinine 0.7 mg/dL (0.7-1.3) 12/29/18 21:19 Est GFR ( Amer) > 60.0 ml/min (>90) 12/29/18 21: Est GFR (Non-Af Amer) > 60.0 ml/min 12/29/18 21:19 BUN/Creatinine Ratio 31.4 12/29/18 21:19 Glucose 89 mg/dL (70-105) 12/29/18 21:19 Calcium 9.5 mg/dL (8.6-10.3) 12/29/18 21: Total Bilirubin 0.3 mg/dL (0.3-1.0) 12/29/18 21:19 AST 31 U/L (13-39) 12/29/18 21: ALT 45 U/L (7-52) 12/29/18 21:19 Alkaline Phosphatase 55 U/L (34-104) 12/29/18 21:19 Total Protein 7.3 gm/dL (6.0-8.3) 12/29/18 21:19 Albumin 4.2 gm/dL (4.2-5.5) 12/29/18 21:19 Globulin 3.1 gm/dL 12/29/18 21: Albumin/Globulin Ratio 1.4 (1.0-1.8) 12/29/18 21:19 Triglycerides 141 mg/dL (<150) 12/30/18 07:29 Cholesterol 175 mg/dL (<200) 12/30/18 07:29 LDL Cholesterol Direct 127 mg/dL (75-193) 12/30/18 07:29 HDL Cholesterol 39 mg/dL (23-92) 12/30/18 07:29 TSH 0.81 uIU/ml (0.34-5.60) 12/29/18 22:15 Valproic Acid 51.1 ug/mL (50.0-100.0) 01/07/19 06:45 RPR NONREACTIVE (NONREACTIVE) 12/29/18 07:29 - Physical Exam Vitals and I&O: Vital Signs Temp 97.5 F 01/10/19 05:54 Pulse 59 01/10/19 08:00 Resp 19 01/10/19 08:00 BP 120/68 01/10/19 08:00 Pulse Ox 95 01/10/19 08:00 Intake & Output 01/09/19 01/10/19 01/10/19 18:59 06:59 18:59 Intake Total 220 Balance 220 Intake: Oral 220 Other: # Voids 4 2 # Bowel Movements 0 0 Active Medications: Current Medications Acetaminophen (Tylenol) 650 mg PO Q6HR PRN PRN Reason: Pain or Fever >101 Stop: 02/28/19 01:37 Last Admin: 01/05/19 09:30 Dose: 650 mg Aspirin (Aspirin Chewable) 81 mg PO DAILY JOSE Stop: 02/28/19 08:59 Last Admin: 01/10/19 08:54 Dose: 81 mg Bisacodyl (Dulcolax 10 Mg Supp) 10 mg RC DAILY PRN PRN Reason: Constipation Stop: 02/28/19 01:37 Divalproex Sodium 125 mg/ (Divalproex Sodium 250 mg) 375 mg PO BID JOSE Stop: 02/28/19 08:59 Last Admin: 01/10/19 08:54 Dose: 375 mg Docusate Sodium (Colace) 100 mg PO DAILY JOSE Stop: 02/28/19 08:59 Last Admin: 01/10/19 08:54 Dose: 100 mg Donepezil HCl (Aricept) 10 mg PO HS JOSE Stop: 02/28/19 20:59 Last Admin: 01/09/19 20:36 Dose: 10 mg Dorzolamide/Timolol (Cosopt Ophth Soln) 1 drop EACH EYE BID JOSE Stop: 02/28/19 08:59 Last Admin: 01/10/19 08:53 Dose: 1 drop Levothyroxine Sodium (Synthroid) 0.025 mg PO QDAC JOSE Stop: 02/28/19 07:29 Last Admin: 01/10/19 06:46 Dose: 0.025 mg Lorazepam (Ativan) 0.5 mg PO Q6HR PRN; Protocol PRN Reason: Anxiety Stop: 02/28/19 05:23 Last Admin: 01/07/19 08:53 Dose: 0.5 mg Magnesium Hydroxide (Milk Of Magnesia) 30 ml PO Q72H PRN PRN Reason: Constipation Stop: 02/28/19 01:37 Memantine (Namenda) 5 mg PO DAILY JOSE Stop: 03/06/19 08:59 Last Admin: 01/10/19 08:54 Dose: 5 mg Olanzapine (Zyprexa) 10 mg PO HS JOSE; Protocol Stop: 03/07/19 20:59 Last Admin: 01/09/19 20:36 Dose: 10 mg Thiamine HCl (Vitamin B1) 100 mg PO DAILY JOSE Stop: 02/28/19 08:59 Last Admin: 01/10/19 08:54 Dose: 100 mg Vitamin D (Vitamin D3) 2,000 iu PO DAILY JOSE Stop: 03/01/19 08:59 Last Admin: 01/10/19 08:54 Dose: 2,000 iu Zolpidem Tartrate (Ambien) 5 mg PO HS PRN PRN Reason: Insomnia Stop: 02/28/19 05:25 Last Admin: 01/08/19 20:53 Dose: 5 mg General: demented HEENT: NC/AT, PERRLA Neck: Supple, No JVD Lungs: CTAB Cardiovascular: RRR, Normal S1, Normal S2 Abdomen: soft, non-tender, globular, positive bowel sound Extremities: excoriation Neurological: no change, disorganized - Procedures Procedures: Procedures Procedure Code Date GROUP PSYCHOTHERAPY 71304 07/02/15 GROUP PSYCHOTHERAPY [id number] 07/02/15 OTHER GROUP THERAPY 94.44 04/09/15 Internal Medicine Assmt/Plan - Assessment Assessment: leukocytosis dementia hypothroidism generalized weakness oa - Plan Plan: fall precaution nsaids cont on synthroid cpm dw rn Nutritional Asmnt/Malnutr-PDOC - Dietary Evaluation Malnutrition Findings (Please click <Entered> for more info): Nutritional Asmnt/Malnutrition Start: 01/02/19 10: 17 Text: Status: Complete Freq: Protocol: Document 01/02/19 10:17 IRINEO (Rec: 01/02/19 10:24 IRINEO [email or web address]) Nutritional Asmnt/Malnutrition Patient General Information Nutritional Screening Moderate Risk Diagnosis psychosis Pertinent Medical Hx/Surgical Hx CAD, asthma/COPD, thyroid disorder, dementia, cerebrovascular disease, anemia, occult thyroidism, paranoid schizophrenia Subjective Information Pt seen eating lunch in bed at time of visit, stated food is ok, likes coffee with all meals. Per EMR, PO intake 75- 100%. Current Diet Order/ Nutrition Support regular Pertinent Medications colace, synthroid, vit B1, vit D3 Pertinent Labs 5/2 TG 217 Nutritional Hx/Data Height 1.96 m Height (Calculated Centimeters) 195.6 Current Weight (lbs) 77.111 kg Weight (Calculated Kilograms) 77.1 Weight (Calculated Grams) 25663.7 [place] Body Weight 208 Body Mass Index (BMI) 20.1 Weight Status Approriate GI Symptoms GI Symptoms None Last BM 5/6 Difficult in: None Skin Integrity/Comment: dryness Current %PO Good (75-100%) Estimated Nutritional Goals BEE in Kcals: Using Current wt Calories/Kcals/Kg 25-30 Kcals Calculated 9367-3191 Protein: Using Current wt Protein g/k.8 Protein Calculated 62 Fluid: ml 1875-2340ml (1ml/kcal) Nutritional Problem No current Nutrition Prob Problem N/A Malnutrition Alert Is there a minimum of two criteria No selected? Query Text:Check all the applicable criteria. A minimum of two criteria are recommended for diagnosis of either severe or non-severe malnutrition. Malnutrition Related to Morbid Obesity Malnutrition related to morbid obesity No Intervention/Recommendation Comments 1. Continue with regular diet as ordered. 2. Monitor PO intake, wt, labs and skin integrity 3. F/U as low risk in 7 days Expected Outcomes/Goals Expected Outcomes/Goals 1. PO intake to meet at least 75% of nutritional needs. 2. Wt stability, skin to remain intact, labs to approach WNL.
== END 2019-01-10 16:55 | DRG 885 ==
LOC: ER 20:49 → GERO 22:30
PROVIDERS: ADMIT Psychiatry & Neurology Psychiatry; ATTEND Psychiatry & Neurology Psychiatry
DX: F31.9 Bipolar disorder, unspecified (principal); F03.91 Unspecified dementia, unspecified severity, with behavioral disturbance; J44.0 Chronic obstructive pulmonary disease with (acute) lower respiratory infection; D72.829 Elevated white blood cell count, unspecified; E03.9 Hypothyroidism, unspecified; M19.90 Unspecified osteoarthritis, unspecified site; I25.10 Atherosclerotic heart disease of native coronary artery without angina pectoris; J20.8 Acute bronchitis due to other specified organisms
CPT/HCPCS: 36415-UA; 71045-TC; 80053-TC; 80061-TC; 80164-TC; 83036-90; 84443-TC; 85025-TC; 86592-TC; 93005; Z7610